=== PATIENT | female | born 1930 | race Caucasian/White ===

== ENCOUNTER 2016-07-31 14:58 | Inpatient (IN) | payer MEDICARE, OTHER ==
[~2016-07-31] VITALS: Ht 160 cm; Wt 65.6 kg
[2016-07-31 15:12] VITALS: BP 224/84; PULSE 77; RESP 23; O2SAT 97
--- NOTE | 2016-07-31 15:13 | ED.REPORT ---
HPI-General Illness Date of Service Jul 31, 2016 ED Provider: The patient is an 86 year old female with history of hyperlipidemia, diabetes mellitus type II, anxiety, depression, who was brought to the emergency department complaining of generalized weakness that has been worsening over the last 2-3 months. Over the last week she has been falling on several occasions. She has also been complaining of generalized myalgias and fatigue. Her neurologist believes her weakness is due to overdosing on her medication. She was given a new prescription for lorazepam 1 week ago which correlates with the timing of the falls. She denies chest pain, abdominal pain or shortness of breath. Nursing Notes Stated Complaint: GENERAL Chief Complaint: General Complaint Nursing Notes Reviewed: Yes Allergies: Coded Allergies: Penicillins (Unverified Allergy, Severe, ANAPHYLACTIC SHOCK, 05/17/09) TAPE (Unverified Allergy, Severe, LÓPEZ, 08/13/05) latex (Unverified Allergy, Severe, HIVES, 05/17/09) General Time Seen by MD: 15:13 Chief Complaint Weakness Hx Obtained From: Patient, Daughter, EMS Arrived By: Ambulance Sudden in Onset?: No Onset Occurred: More than a week ago... Symptom Duration: Since onset Quality: Painful Severity: Current: Moderate Severity: Maximum: Moderate Recent Healthcare: No recent hospitalization, Recent doctor visit Similar Sx Previous: Yes Past Medical History Past Medical History Parkinson's Disease Anemia Anxiety Hypertension Hyperlipidemia Osteoarthritis Depression Restless leg syndrome Type II diabetes mellitus Past Surgical History Hip replacement x2 Knee replacement x2 Hysterectomy Smoking History Former Smoker Social History Drug Use: Denies drug use Other Social History: Good social support, Lives alone Ambulatory Status Independent Review of Systems Full Review of Systems Constitutional: Reports: Fatigue, Weakness - generalized Respiratory: Denies: Shortness of breath Cardiovascular: Denies: Chest pain GI: Denies: Abdominal pain Musculoskeletal: Reports: Myalgia Neurologic: Reports: Weakness Complete sys rev & neg: except as marked. Physical Exam Vital Signs Vital Signs Date Time Temp Pulse Resp B/P Pulse Ox O2 Delivery O2 Flow Rate FiO2 07/31/16 15:12 36.8 77 23 224/84 97 Room Air Initial VS: Reviewed, Vital signs abnormal Neck: Supple, Non-tender, Full range of motion Abdomen / GI: Soft, Non-tender, No guarding, No rebound, No distention Lymphatic: No lymphadenopathy Extremities: Vascular intact, Neuro intact Skin: Warm, Dry, No cyanosis Psychiatric: Mood/affect normal, Behavior normal, Normal thought content General/Constitutional: Awake, Alert Head / Eyes: Atraumatic, Normocephalic, PERRL, EOMI ENT: Airway patent Mouth: Positive: Mucous membranes dry Respiratory / Chest: Atraumatic, Breath sounds NL, Breath sounds = bilat, No respiratory distress, No rales, No rhonchi, No wheezing Cardiovascular: Heart rate NL, Regular rhythm, Cap refill not delayed, Peripheral circulation NL Heart Sounds / Murmur: Positive: Systolic murmur present.. (at the right upper sternal border) Lower Ext Edema: Positive: Bilateral 1+ Upper Extremities Upper Extremity / MS: Neurologic intact, Vascular intact Scattered bruising Lower Extremity / Pelvis / MS: Neurologic intact, Vascular intact Bilateral lower extremity edema. Bruising to both lower extremities. Neurologic: Oriented X3, Speech NL, No sensory deficits Mild intention tremor. Moving all four extremities. Interpretation & Diagnostics Lab Results Interpretation Result Diagram: 07/31/16 1558 07/31/16 1558 Test 07/31/16 15:10 07/31/16 15:58 Urine Color Yellow (YELLOW) Urine Appearance Clear (CLEAR,HAZY) Urine pH 6.5 (5.0-8.0) Urine Specific [place] 1.015 (1.003-1.035) Urine Protein Negativemg/dL (NEG,TRACE) Urine Glucose (UA) Negativemg/dL (NEGATIVE) Urine Ketones Tracemg/dL (NEGATIVE) Urine Occult Blood Negative (NEGATIVE) Urine Nitrite Negative (NEGATIVE) Urine Bilirubin Negative (NEGATIVE) Urine Urobilinogen Normalmg/dL (NORMAL) Urine Leukocyte Esterase Negative (NEGATIVE) Urine RBC 0-2/hpf (0-2) Urine WBC 0-5/hpf (0-5) Urine Epithelial Cells None/hpf (NONE-MOD) Urine Crystals None seen (NONE SEEN) Urine Bacteria Few/hpf (NONE-FEW) Urine Hyaline Casts None/lpf (NONE) Urine Granular Casts None seen (NONE SEEN) Urine Waxy Casts None seen (NONE SEEN) Urine Red Blood Cell Casts None seen (NONE SEEN) Urine White Blood Cell Casts None seen (NONE SEEN) Urine Mucus None seen (None Seen) Urine Trichomonas None seen (NONE SEEN) Urine Yeast None (NONE SEEN) Urinalysis Comment None Urine Culture Reflexed Not indicated Hold Urine Received (Received) White Blood Count 7.0th/mm3 (3.8-10.1) Red Blood Count 4.48mil/mm3 (3.90-5.20) Hemoglobin 13.4g/dL (12.0-15.6) Hematocrit 40.1% (35.0-46.0) Mean Corpuscular Volume 89.5fL (81-100) Mean Corpuscular Hemoglobin 29.9pg (27.0-35.0) Mean Corpuscular Hemoglobin Concent 33.4% (32.0-37.0) Red Cell Distribution Width 12.9% (12.3-15.4) Platelet Count 287bil/L (150-400) Neutrophils (%) (Auto) 71.0% (40-74) Lymphocytes (%) (Auto) 16.2% (14-46) Monocytes (%) (Auto) 11.0% (4-12) Eosinophils (%) (Auto) 1.1% (0-5) Basophils (%) (Auto) 0.4% (0-3) Sodium Level 130mEq/L (134-144) Potassium Level 4.7mEq/L (3.5-5.2) Chloride Level 92mEq/L (97-108) Carbon Dioxide Level 22mmol/L (18-29) Blood Urea Nitrogen 17mg/dL (8-27) Creatinine 0.93mg/dL (0.57-1.00) Estimat Glomerular Filtration Rate 82mL/min (>59) Glucose Level 107mg/dL (60-99) Lactic Acid Level 1.0mmol/L (0.4-2.0) Calcium Level 9.2mg/dL (8.5-10.1) Magnesium Level 1.9mg/dL (1.6-2.6) Total Bilirubin 0.6mg/dL (0.0-1.2) Aspartate Amino Transf (AST/SGOT) 29U/L (0-50) Alanine Aminotransferase (ALT/SGPT) 9U/L (0-32) Alkaline Phosphatase 92U/L (25-165) Troponin T < 0.010ug/L (0.0-0.011) Pro-B-Type Natriuretic Peptide 801.9pg/mL (0-738) Total Protein 6.5g/dL (6.4-8.4) Albumin 4.0g/dL (3.4-5.0) ECG Interpretation ECG Interpretation: Sinus rhythm with anterior and inferior Q waves Time: 15:50 Interpreted by: ED physician X-Ray Chest Interpretation Chest Xray Interpretation: IMPRESSION: No trauma found, source of weakness and falls is not seen. Dictated by: Chinmay Kemp M.D. on 07/31/2016 at 16:15 Interpretation / Wet Read by: Interpret - Radiologist CT Head Interpretation IMPRESSION: No acute intracranial abnormality is seen. Moderate atrophic changes. Scattered mild because of thickening is present in the sinuses. Dictated by: Jose A Sierra M.D. on 07/31/2016 at 17:30 Study: Head CT no contrast Interpretation / Wet Read by: Interpret - ED physician Re-Eval/Medical Decision Med Decision/Clinical Course Overall findings may be related to combination of carbidopa levodopa and Requip. However her overall presentation and exam findings would preclude her from going home. We will plan to admit her and have neurology see her tomorrow. Source of Hx: Old records, EMS, Family Time of Eval: 15:49 Re-Evaluation/Progress Note: Rechecked the patient. She states, "I am feeling lousy." Time of Eval: 17:53 Re-Evaluation/Progress Note: Rechecked the patient. Discussed results, diagnosis, and plan for admission. All questions were addressed. Consultation #1: Referral / Consult Name: Yamila Castillo MD Consulted With: Hospitalist Requested Call at: 17:53 Call Returned at: 18:07 Pipe Liner: Will see patient, Agrees with eval, Agrees with plan, Accepts admit Consultation #2: Referral / Consult Name: Angel George MD Consulted With: Neurology Call Returned at: 18:00 Pipe Liner: Will see patient, Agrees with eval, Agrees with plan Note: Agrees to consult. Counseled Regarding: Diagnosis, Lab results, Need for admission Discharge & Departure Primary Impression: Altered level of consciousness Additional Impression: Drug overdose Encounter type: initial encounter Injury intent: undetermined intent Qualified Code: T50.904A - Poisoning by unspecified drugs, medicaments and biological substances, undetermined, initial encounter Disposition: ADMITTED TO HOSPITAL Discharge Condition All VS Reviewed: Yes Condition: Stable Scribe Attestation Portions of this note were transcribed by Jojo Fox. I, Dr. Caceres personally performed the history, physical exam and medical decision-making; I reviewed and confirmed the accuracy of the information in the transcribed note. Signed by: Lanie Garcia, 07/31/2016 and 1810. Melquiades Caceres DO Jul 31, 2016 15:13 Jojo Fox Jul 31, 2016 15:23
[2016-07-31] MEDS ORDERED: 0.9% Sodium Chloride 1,000 ML IV ONE (15:42)
[2016-07-31] MEDS ORDERED: Labetalol 5 mg/mL 4 mL Inj IVPUSH ONE ×2 (16:00→17:25)
[2016-07-31 16:11] LABS: BASOPHILS % (AUTO) 0.4 % (0-3); EOSINOPHILS % (AUTO) 1.1 % (0-5); Mean Corpuscular Hemoglobin 29.9 pg (27.0-35.0); Mean Corpuscular Volume 89.5 fL (81-100); Platelet Count 287 bil/L (150-400)
--- NOTE | 2016-07-31 16:17 | DRSVH ---
PROCEDURE: X-RAY CHEST ONE VIEW, PORTABLE ([id number]) INDICATIONS: weakness, falls TECHNIQUE: One view of the chest was acquired. COMPARISON: None. FINDINGS: Surgical changes and devices: None. Lungs and pleura: No pleural effusions or pneumothorax. Lungs are clear. Mediastinum: Mediastinal contours appear normal. Heart size is normal. Bones and chest wall: No suspicious bony lesions. Overlying soft tissues appear unremarkable. IMPRESSION: No trauma found, source of weakness and falls is not seen. Dictated by: Chinmay Kemp M.D. on 07/31/2016 at 16:15 Approved by: Chinmay Kemp M.D. on 07/31/2016 at 16:15
[2016-07-31 17:15] VITALS: BP 197/70; PULSE 73; RESP 18; O2SAT 97
--- NOTE | 2016-07-31 17:33 | DRSVH ---
PROCEDURE: CT BRAIN WITHOUT CONTRAST ([id number]) INDICATIONS: falls TECHNIQUE: Noncontrast 4.5 mm thick angled axial sections acquired from the foramen magnum to the vertex, with c oronal reformats. COMPARISON: None. FINDINGS: Image quality: Excellent. CSF spaces: Basal cisterns are patent. No extra-axial fluid collections. The ventricles are symmet mariel in size and shape. Brain: No intracranial bleeds or masses. There is cerebral volume loss for age, with resultant vent ricular and sulcal prominence. There are periventricular and deep white matter chronic small vessel ischemic changes. There is intracranial internal carotid artery atherosclerosis. Skull and face: Calvarium and visualized facial bones appear intact, without suspicious lesions. Sinuses: Visualized sinuses and mastoids show scattered mild mucosal thickening IMPRESSION: No acute intracranial abnormality is seen. Moderate atrophic changes. Scattered mild because of thickening is present in the sinuses. Dictated by: Jose A Sierra M.D. on 07/31/2016 at 17:30 Approved by: Jose A Sierra M.D. on 07/31/2016 at 17:30
[2016-07-31 17:41] LABS: Magnesium 1.9 mg/dL (1.6-2.6)
[2016-07-31 17:44] LABS: TROPONIN T < 0.010 ug/L (0.0-0.011)
[2016-07-31 17:45] VITALS: BP 174/64; PULSE 72; RESP 18; O2SAT 96
[2016-07-31 17:48] LABS: APPEARANCE,URINE CLEAR (CLEAR,HAZY); COLOR,URINE YELLOW (YELLOW); OCCULT BLOOD,URINE NEGATIVE (NEGATIVE); PH,URINE 6.5 (5.0-8.0); UROBILINOGEN,URINE NORMAL (NORMAL)
[2016-07-31] MEDS ORDERED: LORazepam 0.5 mg Tablet PO ONE (18:00)
--- NOTE | 2016-07-31 20:47 | PCM.HPMED ---
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 for neurologic assessment of generalized weakness that has been worsening over the last 2 months. Per report, patient has also fallen on several occasions in the past week and has been complaining of general myalgia, fatigue, and general discomfort. Her neurologist believes her symptoms may be due to overdosage of her medications, and along with addition of Lorazepam to her regimen, this may be causing her recent falls. She is unable to localize her discomforts, but denies any recent fevers, chills, N/V/D, abdominal pain, SOB, or anginal symptoms. Her Sinemet dosage was double a week ago, which has helped with her tremors, but her weakness remains. Her fluid and PO intake has also been fairly decreased. In the ED, patient was found to be hypertensive at 224/84. Her CBC and CMP was reassuring except for Sodium of 130. Her UA was unremarkable. CXR and CT brain did not show any acute disease process. Rapid Flu screen was negative. EKG was sinus rhythm with rate in the 80s. She did receive a Liter of NS and 30mg of IV Labetalol for blood pressure control. Review of Systems: 12 Point ROS negative except as stated in HPI Allergies Coded Allergies: Penicillins (Unverified Allergy, Severe, ANAPHYLACTIC SHOCK, 05/17/09) TAPE (Unverified Allergy, Severe, LÓPEZ, 08/13/05) latex (Unverified Allergy, Severe, HIVES, 05/17/09) Home Medications Med list from [facility] records Sinemet CR 25/100 1 tab PO QHS Sinemet 25/100 1 tab PO TID during the day (This has been increased to 2 tablets PO TID recently) Celecoxib 200mg 1 tab Po BID Nexium 40mg 1 tab PO daily Fluoxetine 40mg 1 tab PO daily Fluticasone 2 sprays daily Requip 0.25mg 1 tab po prn RLS Lorazepam 0.5mg 1/2 tab PO Q6h prn anxiety/agitation Vit D3 Per patient's medication log Tylenol PM 1 tab prn insomnia CBD 1 drop TID Santana [facility] Sleep Aid 2 tablets QHS Tylenol 325mg 2 tablets PRN Lorazepam 0.5mg 2 tabs at bedtime and as needed Q6h Rohypnol 1 tab PO PMH Parkinson's Disease Anemia Anxiety Hypertension Hyperlipidemia Osteoarthritis Depression Restless leg syndrome Type II diabetes mellitus Past Surgical History Hip replacement x2 Knee replacement x2 Hysterectomy Social History Hx Alcohol Use: Yes Hx Substance Use: No Hx Tobacco Use: Yes Smoking Status: Former Smoker Living Arrangement: with Family Exam Vital Signs Vital Sign - Last Date Time Temp Pulse Resp B/P Pulse Ox O2 Delivery O2 Flow Rate FiO2 07/31/16 15:12 36.8 77 23 224/84 97 Room Air Exam Gen: Thin female who appears restless HEENT: Sclera non-icteric, head normocephalic atraumatic Neck: Soft, non-tender CV: RRR with systolic murmur, no JVD noted Resp: CTAB, normal respiratory effort, no w/r/c, no clubbing Abd: Soft, non-tender, nondistended, normoactive BS MSK: Tremors of upper extremities at rest, Neuro: Oriented x3, light sensation grossly intact Psych: Restless and uncomfortable Lab and Diagnostics Result Diagram: 07/31/16 1558 07/31/16 1558 X-Rays, CTs and MRIs PROCEDURE: CT BRAIN WITHOUT CONTRAST ([id number]) INDICATIONS: falls TECHNIQUE: Noncontrast 4.5 mm thick angled axial sections acquired from the foramen magnum to the vertex, with coronal reformats. COMPARISON: None. FINDINGS: Image quality: Excellent. CSF spaces: Basal cisterns are patent. No extra-axial fluid collections. The ventricles are symmetric in size and shape. Brain: No intracranial bleeds or masses. There is cerebral volume loss for age , with resultant ventricular and sulcal prominence. There are periventricular and deep white matter chronic small vessel ischemic changes. There is intracranial internal carotid artery atherosclerosis. Skull and face: Calvarium and visualized facial bones appear intact, without suspicious lesions. Sinuses: Visualized sinuses and mastoids show scattered mild mucosal thickening IMPRESSION: No acute intracranial abnormality is seen. Moderate atrophic changes. Scattered mild because of thickening is present in the sinuses. PROCEDURE: X-RAY CHEST ONE VIEW, PORTABLE ([id number]) INDICATIONS: weakness, falls TECHNIQUE: One view of the chest was acquired. COMPARISON: None. FINDINGS: Surgical changes and devices: None. Lungs and pleura: No pleural effusions or pneumothorax. Lungs are clear. Mediastinum: Mediastinal contours appear normal. Heart size is normal. Bones and chest wall: No suspicious bony lesions. Overlying soft tissues appear unremarkable. IMPRESSION: No trauma found, source of weakness and falls is not seen. Assessment & Plan 86 year old Female with h/o Parkinson Disease, DM2, HTN, anxiety, and depression who presented to the emergency department complaining of generalized weakness that has been worsening over the last 2 months with increasing falls over the last week. She recently increased her Sinemet dosage, which has improved her tremors, but her weakness was present prior to the change. Her falls in the last week corresponds with the addition of Lorazepam to her medication regimen. Generalized Weakness -Uncertain of source, but likely multifactorial and worsened due to recent medication changes. Besides her Parkinson medications, she is also on multiple sedative medications including Lorazepam, Requip, Rohypnol, Tylenol PM, CBD drops, and XD Nutrition sleep aids. -Plan is for neuro assessment in the AM, Dr. George has been notified. -DDx Progression of Parkinson,and infectious sources, but labs and imaging have been benign Parkinson Disease -Baseline tremors have been stable -Swallow evaluation recommended -Fall risk precautions -Will continue Sinemet IR 25/100, 1 tab PO TID. Will need to clarify current dosing with family members. Hypertension -Blood pressures have been repeatedly in the 200s systolic, there were no BP medications noted on patient's medication list -Improving pressures after IV Labetalol administration. Anxiety and Depression -Continue Fluoxetine Diabetes Mellitus type 2 -Non Insulin Dependent, diet controlled Pain Evaluation: Adequate Pain Control VTE Prophylaxis: Sub-Q Enoxaparin Resuscitation Status: DNR/DNI:Do Not Resuscitate/Intubate Attending Statement Pt seen and examined by myself and agree with above plan. Ramsey,Jacky Thakur DO Jul 31, 2016 19:57 Cami Lisa MD Aug 01, 2016 06:16
[2016-07-31] MEDS: 0.9% Sodium Chloride 1,000 ML IV SCH (21:14)
[2016-07-31 21:15] VITALS: BP 179/70; PULSE 70; RESP 17; O2SAT 96
[2016-08-01 01:20] VITALS: BP 190/72; PULSE 63; RESP 17; O2SAT 94
--- NOTE | 2016-08-01 03:06 | NUR ---
ADMIT: Pt. arrived to [facility] from the ED via stretcher. Transferred to bed with 3 unit staff assist. Pt. is able to answer some questions sometimes but does not want to talk, appears upset, keeping her eyes closed most of the time. Refuses to answer admit questions. Wants light out. Pt. incontinent of urine on arrival. Has a brief on. Jose G care done. Noticed some redness in her rectum, applied Calmoseptine cream with jose g care. Has multiple bruises on feet, legs and thighs. Generalized red skin rash, denies itching. Some bruises on right elbow, hands and feet. Some old healed surgical scars on face, knees, and both hips. Pt. has tremors hx Parkinson, and restless leg syndrome. Was up to the [facility] with 2 person assist. Voided. High risk for falls, she is confused and disoriented. Lanny alarm placed in bed for safety. Pt. became agitated and restless attempting to get OOB. Called for 1:1 sitter. None available at this time. CHEESE FACTORY WORKER and RN watching pt. from outside her room window for safety. Keeping pt. NPO for now until swallow eval. done today. Admit done per protocol. Gave report to Mary Ventura Rn.
--- NOTE | 2016-08-01 05:16 | NUR ---
Confusion Patient appears confused and disoriented. Does not understand why she cannot get out of bed and go back home. Patient does not respond appropriately to questions.
[2016-08-01 05:40] VITALS: BP 185/74; PULSE 60; RESP 17; O2SAT 96
[2016-08-01 07:38] LABS: BASOPHILS % (AUTO) 0.7 % (0-3); MONOCYTES % (AUTO) 12.8 % (4-12); Mean Corpuscular Hemoglobin 30.5 pg (27.0-35.0); NEUTROPHILS % (AUTO) 68.4 % (40-74); Platelet Count 286 bil/L (150-400)
[2016-08-01] MEDS ORDERED: CELE-67 PO (09:45)
[2016-08-01] MEDS ORDERED: CHOL100045 PO (09:46)
[2016-08-01] MEDS ORDERED: FLUO40CA PO (09:46)
[2016-08-01] MEDS ORDERED: LORA0.5T PO (09:47)
[2016-08-01] MEDS ORDERED: ACET325T51 PO (09:48)
[2016-08-01] MEDS ORDERED: CARB1TAB14 PO (09:53)
[2016-08-01] MEDS ORDERED: ROPI0.25 PO (09:53)
[2016-08-01] MEDS ORDERED: CARB1TAB36 PO (09:54)
--- NOTE | 2016-08-01 09:55 | NUR ---
Med Req Medication reconciliation done with daughter.
--- NOTE | 2016-08-01 09:57 | NUR ---
Evaluation completed. Please go to "Notes" then click on "Assessments and Notes" (bottom left corner of screen). Then select appropriate discipline tab on top of screen.
[2016-08-01] MEDS: 0.9% Sodium Chloride 1,000 ML IV SCH (11:27)
[2016-08-01 14:33] VITALS: BP 170/73; PULSE 75; RESP 17; O2SAT 96
--- NOTE | 2016-08-01 15:24 | PCM.PNMED ---
Subjective Date of Service Aug 01, 2016 Subjective complains of generalized malaise and weakness. denies any fever, chills, nausea , vomiting, diarrhea Exam Vital Signs Vital Sign - Last Date Time Temp Pulse Resp B/P Pulse Ox O2 Delivery O2 Flow Rate FiO2 08/01/16 14:33 37.0 75 17 170/73 96 Room Air Intake and Output 07/31/16 07/31/16 08/01/16 Cumulative From/Thru 15:00 23:00 07:00 07/31/16 15:12 - 08/01/16 06:12 Intake Total 1000 ml 334 ml 1334 ml Output Total 491 ml 491 ml Balance 1000 ml -157 ml 843 ml Intake Oral 0 ml 0 ml IV Total 1000 ml 334 ml 1334 ml Output Urine Total 491 ml 491 ml # Bowel Movements 0 0 General: Alert, Oriented X3, Cooperative, No Acute Distress Eyes: PERRLA, EOMI, Scleral Anicteric Mouth: Mucous Membr Moist/[place] Neck: Supple Chest & Lungs: Chest Wall Normal, Clear to auscultation & percussion Cardiovascular: Regular Rate/Rhythm Abdomen: Non-tender, Non-distended, Normoactive bowel tones, Soft Extremities: No cyanosis/clubbing/edma bilat Neurological: Grossly Neurologically Intact, Normal Speech IVs and Medications Medications Reviewed: Medications were reviewed in detail Lab and Diagnostics Result Diagram: 08/01/1673108/01/16 0732 X-Rays, CTs and MRIs PROCEDURE: CT BRAIN WITHOUT CONTRAST ([id number]) INDICATIONS: falls TECHNIQUE: Noncontrast 4.5 mm thick angled axial sections acquired from the foramen magnum to the vertex, with coronal reformats. COMPARISON: None. FINDINGS: Image quality: Excellent. CSF spaces: Basal cisterns are patent. No extra-axial fluid collections. The ventricles are symmetric in size and shape. Brain: No intracranial bleeds or masses. There is cerebral volume loss for age , with resultant ventricular and sulcal prominence. There are periventricular and deep white matter chronic small vessel ischemic changes. There is intracranial internal carotid artery atherosclerosis. Skull and face: Calvarium and visualized facial bones appear intact, without suspicious lesions. Sinuses: Visualized sinuses and mastoids show scattered mild mucosal thickening IMPRESSION: No acute intracranial abnormality is seen. Moderate atrophic changes. Scattered mild because of thickening is present in the sinuses. PROCEDURE: X-RAY CHEST ONE VIEW, PORTABLE ([id number]) INDICATIONS: weakness, falls TECHNIQUE: One view of the chest was acquired. COMPARISON: None. FINDINGS: Surgical changes and devices: None. Lungs and pleura: No pleural effusions or pneumothorax. Lungs are clear. Mediastinum: Mediastinal contours appear normal. Heart size is normal. Bones and chest wall: No suspicious bony lesions. Overlying soft tissues appear unremarkable. IMPRESSION: No trauma found, source of weakness and falls is not seen. Assessment & Plan 86 year old Female with h/o Parkinson Disease, DM2, HTN, anxiety, and depression who presented to the emergency department complaining of generalized weakness that has been worsening over the last 2 months with increasing falls over the last week. She recently increased her Sinemet dosage, which has improved her tremors, but her weakness was present prior to the change. Her falls in the last week corresponds with the addition of Lorazepam to her medication regimen. # Acute on chronic generalized weakness. poa. ongoing. - Uncertain of etiology, but likely multifactorial and worsened due to recent medication changes. - Besides her Parkinson medications, she is also on multiple sedative medications including Lorazepam, Requip, Rohypnol, Tylenol PM, CBD drops, and Santana signature sleep aids. - f/u with neurology consult and recommendation regarding medication dosing - DDx Progression of Parkinson,and infectious sources, but labs and imaging have been benign # History of Parkinson Disease - Baseline tremors have been stable - f/u with Swallow evaluation recommendations - Fall risk precautions - further Parkinson medications per neurology recs # History of Hypertension with presenting hypertensive urgency. poa. ongoing - Blood pressures have been repeatedly in the 200s systolic, there were no BP medications noted on patient's medication list - start low dose Lisinopril and titrate up as tolerated - cover with Hydralazine prn # Anxiety and Depression - Continue Fluoxetine # Diabetes Mellitus type 2 - Non Insulin Dependent, diet controlled Dispo: 1-2 days VTE Prophylaxis: Sub-Q Enoxaparin VTE Mechanical Devices: Intermittant Pneumatic CD Resuscitation Status: DNR/DNI:Do Not Resuscitate/Intubate Time spent 25 min Austen Rudolph Aug 01, 2016 15:23
[2016-08-01] MEDS ORDERED: LORazepam 0.5 mg Tablet PO PRN (15:25)
--- NOTE | 2016-08-01 16:47 | NUR ---
Social Work Initial Assessment Attempted: Patient confused and unable to participate in assessment. Patient is a 86 year old female admitted under observation status on 07/31/16 for ALT, LOC, pneumonia and drug overdose. Patient payer as Self pay. SW contacted and left message for [employer] for Medicaid assistance. Patient resides in [place]. Neurology to follow. SW to await therapy eval to determine discharge recommendations. SW to follow. PLAN: Initial assessment pending completion after discussion with family, to determine discharge needs. SW to follow. Ladonna HAINES
--- NOTE | 2016-08-01 17:05 | NUR ---
Activity/Neuro [place] [facility] [place]1. Pt has been able to ur[place] [facility] [place] is also incontinent in her brief. Pt is alert to her self and her visitors but is forgetful of where she is at and date/time. Pt has had Parkinson tremors in her hands and been complaining of being cold. Pt is afebrile and has been given warm blankets. Q2 turns for comfort and hourly rounding. Care continues.
[2016-08-01 21:20] VITALS: BP 150/69; PULSE 64; RESP 18; O2SAT 95
[2016-08-02] VITALS (7 sets, daily range): BP systolic 166–203; BP diastolic 72–94; PULSE 75–87; RESP 18–20; O2SAT 95–96
--- NOTE | 2016-08-02 03:41 | NUR ---
IV IV to right forearm noted to be infiltrated at beginning of shift. Orders for patient to be SL. New IV started by rn relief charge. Addendum: 08/02/16 at 0716 by ANTONIA PHILLIPS RN BP this AM: . Dr. Sloan houston @ [phone] and order for Hydralazine 10mg IVP [id number] PRN SBP >170 and/or DBP >90 received. Hydralazine 10mg IVP given.
[2016-08-02] MEDS: hydrALAZINE 20 mg/mL Inj IV PRN ×3 (06:14→19:13)
--- NOTE | 2016-08-02 09:03 | NUR ---
Social Work Initial Assessment: GAUDENCIO met with patient daughter Jennifer, at bedside to discuss discharge plan. Patient is an 86 year old female admitted under observation status on 07/31/16 for ALT LOC, pneumonia, and drug OD. Patient resides in [place] independently. Patient son also resides on the [place] and assists with needs during the evenings. Patient payer as Self pay, but patient daughter states that patient is insured and has insurance. Daughter to obtain and to present to GAUDENCIO. Patient has no C history but receives therapy services from a friend who is a therapist [place] the [place]. Patient has a walker, cane, and wheelchair at home for use. Patient has previous SNF history at [facility]. Patient daughter states that due to patient clinical course, and families inabilities to care for patient needs, plan is SNF placement. Patient daughter aware of need for financial payer and current observation status. SW to consult with UR team to determine status for possible rehab. SNF choice list offered per request and choice as [facility], [facility], and [facility]. GAUDENCIO to send referrals for SNF once admit status determined. If admit status remains, SW to follow for C. SW to follow. PLAN: Home alone. Possible SNF placement pending financial payer/admit status vs r/o [facility]. GAUDENCIO to follow. Ladonna HAINES Addendum: 08/02/16 at 0910 by LEILANI FINNEY Amended: Links added.
--- NOTE | 2016-08-02 09:03 | CONS ---
[address] [address] CONSULTATION REPORT PATIENT: SUNIL OSUNA : 1930 MR#: [id number] ADMIT: 07/31/2016 JOB ID: [id number] DATE OF SERVICE: 08/01/2016 NEUROLOGY CONSULTATION: REQUESTING PROVIDER: Melquiades Caceres DO CHIEF COMPLAINT: Confusion. HISTORY OF PRESENTING ILLNESS: The patient is a pleasant 86-year-old right-handed woman with a longstanding history of Parkinson disease with multiple medical problems, including a history of Parkinson disease. 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 It appears that over the past several weeks she has not been able to sleep for many hours and has noted worsening insomnia. There have been multiple changes to her medications. Multiple medications have been tried for her insomnia including Tylenol, CBD, Santana Signature sleep aids, lorazepam as well as Rohypnol with no significant improvement in her sleep. In addition to that, multiple changes have been made to her Sinemet. At one point, her Sinemet may have been as high as two tablets three times daily including an evening dose and it looks as well that her Requip was increased. She does have a prominent resting tremor including a chin tremor and her daughter who provided the history also notes and she suspects that the patient may have been taking more Sinemet on her own to counter the tremor. PHYSICAL EXAMINATION: Temperature of 36.5, pulse of 64, respiratory rate of 18, blood pressure 150/69, pulse oximetry 95% on room air. General: She is a well-developed, well-nourished woman in no acute distress. Head: Normocephalic, atraumatic. Neck: Supple. No carotid bruits were auscultated. Chest: Clear to auscultation. Heart: Regular rate and rhythm. Abdomen: Soft, nondistended, nontender. Extremities: No cyanosis, clubbing or edema. NEUROLOGIC EXAMINATION: She is awake, alert, and oriented x2. There is no aphasia. Cranial nerves: Pupils equal, round and react to light. Extraocular movements were smooth and conjugate with no evidence of nystagmus. Face appeared symmetrical. Facial sensation was intact to light touch and temperature. Auditory sensation was intact to finger rub. Palatal elevation was symmetrical. Tongue was midline. Sternocleidomastoid and trapezii were 5/5 bilaterally. Motor: There is a prominent 4-6 hertz resting tremor primarily in the left greater than right upper extremity. There is also a chin tremor noted, 4-6 hertz resting chin tremor. Tone is mildly increased in the left greater than right upper extremity. Sensory is intact. Deep tendon reflexes symmetrical. Plantar was flexor. Gait was deferred. Coordination: Finger to nose was intact without evidence of dysmetria. She did have a CT of her head which demonstrated no acute intracranial abnormality. Moderate atrophic changes. Scattered mild thickening present in the sinuses. IMPRESSION: Suspect toxic metabolic encephalopathy/encephalopathy secondary to side effects of medications as well as severe insomnia. RECOMMENDATIONS: Carbidopa/levodopa immediate release 1 tablet p.o. 4x daily is recommended. For sleep I do recommend a trial of trazodone starting at a low dose of 12.5-25 mg at bedtime. I also recommend continuing the ropinirole which is still on a low dose of 0.25 mg t.i.d. Her daughter has noted increased hallucinations and confusion which I suspect is related to the increased dose of dopaminergic agents including carbidopa/levodopa as well as ropinirole, which is a dopamine agonist. Although it is certainly possible that there may be worsening of stiffness and tremors in reducing this dose, it is also possible that the confusion will improve. In this case I do also suspect that the severe insomnia is contributing to the apparent worsening not only of her Parkinson disease, but also her confusion and encephalopathy. It also appears that a workup has been performed to exclude any toxic metabolic etiologies. Other than the hyponatremia which was noted and chloride of 92, sodium was 130, glucose 107, and urinalysis was remarkable for trace urine ketones, few bacteria. Otherwise unremarkable. We will continue to follow. Thank you, again, Dr. Caceres for kindly consulting me regarding the care of your patient. Please feel free to contact me with any questions or concerns.
--- NOTE | 2016-08-02 13:55 | NUR ---
NUTRITION ASSESSMENT: ASSESS: 86yo female admitted for pneumonia and altered LOC, likely medication-induced. Pt suffers from Parkinsons. Per notes, pt has experienced general weakness the last couple months w/ several falls in the last week. Pt is confused on time and place, but alert to self and others. PMHX: Parkinsons, DM II, HTN, anxiety, depression, restless leg syndrome, anemia, HLD, OA, hysterectomy, hip and knee replacements x2 LABS: Reviewed WNL. MEDS: Reviewed. Sinemet. GI: BMx1 (08/01) SKIN: Leighton 21 CURRENT WTS: 68.6 kg BMI: 26.8 kg/m2 IBW: 52.3 kg DIET: Pureed w/ NTL per ST eval PO 50% EST. NEEDS: Kcals: 2968-3898 kcal/day (25-30 kcal/kg BW) Pro: 70-80 g/day (1.0-1.2 g/kg BW) NUTRITION DIAGNOSIS: 1.) Chewing/swallowing difficulties related to generalized weakness and altered level of consciousness as evidenced by altered texture diet per ST evaluation. 2.) Inadequate oral intake related to generalized weakness and chronic disease as evidenced by PO 50%. NUTRITION INTERVENTION: 1.) Will continue to monitor per ST. 2.) Will add Mighty Shake No Sugar Added on L&D trays. MONITOR / EVAL: Diet advancement/tolerance, PO, diet, GI, POC. Will continue to monitor per moderate nutrition risk guidelines.
--- NOTE | 2016-08-02 14:15 | PCM.PNMED ---
Subjective Date of Service Aug 02, 2016 Subjective complains of generalized malaise and weakness. denies any fever, chills, nausea , vomiting, diarrhea Exam Vital Signs Vital Sign - Last Date Time Temp Pulse Resp B/P Pulse Ox O2 Delivery O2 Flow Rate FiO2 08/02/16 12:30 80 178/72 08/02/16 11:29 36.4 18 96 Room Air Intake and Output 08/01/16 08/01/16 08/02/16 Cumulative From/Thru 15:00 23:00 07:00 07/31/16 15:12 - 08/02/16 06:28 Intake Total 313 ml 629 ml 2276 ml Output Total 847 ml 500 ml 1838 ml Balance -534 ml 129 ml 438 ml Intake Oral 150 ml 350 ml 500 ml IV Total 163 ml 279 ml 1776 ml Output Urine Total 847 ml 500 ml 1838 ml # Voids 3 3 # Bowel Movements 1 0 1 Exam General: Alert, Oriented X3, Cooperative, No Acute Distress Eyes: PERRLA, EOMI, Scleral Anicteric Mouth: Mucous Membr Moist/[employer] Neck: Supple Chest & Lungs: Chest Wall Normal, Clear to auscultation bilat Cardiovascular: Regular Rate/Rhythm Abdomen: Non-tender, Non-distended, Normoactive bowel tones, Soft Extremities: No cyanosis/clubbing/edema bilat Neurological: Grossly Neurologically Intact, Normal Speech IVs and Medications Medications Reviewed: Medications were reviewed in detail Lab and Diagnostics Result Diagram: 08/01/16 0732 08/01/16 0732 X-Rays, CTs and MRIs PROCEDURE: CT BRAIN WITHOUT CONTRAST ([id number]) INDICATIONS: falls TECHNIQUE: Noncontrast 4.5 mm thick angled axial sections acquired from the foramen magnum to the vertex, with coronal reformats. COMPARISON: None. FINDINGS: Image quality: Excellent. CSF spaces: Basal cisterns are patent. No extra-axial fluid collections. The ventricles are symmetric in size and shape. Brain: No intracranial bleeds or masses. There is cerebral volume loss for age , with resultant ventricular and sulcal prominence. There are periventricular and deep white matter chronic small vessel ischemic changes. There is intracranial internal carotid artery atherosclerosis. Skull and face: Calvarium and visualized facial bones appear intact, without suspicious lesions. Sinuses: Visualized sinuses and mastoids show scattered mild mucosal thickening IMPRESSION: No acute intracranial abnormality is seen. Moderate atrophic changes. Scattered mild because of thickening is present in the sinuses. PROCEDURE: X-RAY CHEST ONE VIEW, PORTABLE ([id number]) INDICATIONS: weakness, falls TECHNIQUE: One view of the chest was acquired. COMPARISON: None. FINDINGS: Surgical changes and devices: None. Lungs and pleura: No pleural effusions or pneumothorax. Lungs are clear. Mediastinum: Mediastinal contours appear normal. Heart size is normal. Bones and chest wall: No suspicious bony lesions. Overlying soft tissues appear unremarkable. IMPRESSION: No trauma found, source of weakness and falls is not seen. Assessment & Plan 86 year old Female with h/o Parkinson Disease, DM2, HTN, anxiety, and depression who presented to the emergency department complaining of generalized weakness that has been worsening over the last 2 months with increasing falls over the last week. She recently increased her Sinemet dosage, which has improved her tremors, but her weakness was present prior to the change. Her falls in the last week corresponds with the addition of Lorazepam to her medication regimen. # Acute on chronic generalized weakness. poa. ongoing. - Uncertain of etiology, but likely multifactorial and worsened due to recent medication changes and overdose (pt reportedly had been taking extra doses of her Parkinsons meds recently) - Besides her Parkinson medications, she is also on multiple sedative medications including Lorazepam, Requip, Rohypnol, Tylenol PM, CBD drops, and Santana signature sleep aids. - c/w supportive care - appreciate neurology consult. will f/u w/ recs # History of Parkinson Disease - Baseline tremors have been stable - Fall risk precautions - further Parkinson medications per neurology recs # History of Hypertension with presenting hypertensive urgency. poa. ongoing - Blood pressures have been repeatedly in the 200s systolic, there were no BP medications noted on patient's medication list - start low dose Lisinopril and titrate up as tolerated - cover with Hydralazine prn # Anxiety and Depression - Continue Fluoxetine # Diabetes Mellitus type 2 - Non Insulin Dependent, diet controlled Dispo: likely tomorrow pending better BP control VTE Prophylaxis: Sub-Q Enoxaparin VTE Mechanical Devices: Intermittant Pneumatic CD Resuscitation Status: DNR/DNI:Do Not Resuscitate/Intubate Time spent 25 min Austen Rudolph Aug 02, 2016 14:15
[2016-08-02] MEDS: Alum-Mag Hydrox-Simeth 30 mL Suspension PO PRN (15:31)
[2016-08-02] MEDS: Ondansetron 2 mg/mL 2 mL Inj IVPUSH PRN ×2 (18:12→19:12)
--- NOTE | 2016-08-02 19:46 | NUR ---
Nausea/HTN/tremors Pt became nauseous asked for Tylenol at 1800, administered Tylenol crushed in applesauce, pt became nauseous and vomited all of the applesauce. administered 4mg IV Zofran, reassess and was un-effective administered another dose of 4mg IV Zofran will continue to monitor. Pt running high blood pressures this shift, IV Hydralazine given as prescribed, helped bring the BP down, gave PO Lisinopril as well. Pt has been complaining of bad tremors all shift administered Parkinson meds as prescribed, pt stated they weren't working very will, will continue to monitor and treat.
--- NOTE | 2016-08-02 22:26 | CONS ---
[address] [address] CONSULTATION REPORT PATIENT: SUNIL OSUNA : 1930 MR#: [id number] ADMIT: 07/31/2016 JOB ID: [id number] DATE OF SERVICE: 08/02/2016 SUBJECTIVE: The patient remains confused today. Reportedly in the afternoon tremor is noted to be much more severe. They have since resolved at the time of examination. Dose today of carbidopa/levodopa 25/100 1 tablet q.i.d. Also, ropinirole 0.25 mg p.o. t.i.d. Reportedly, the patient still only slept several hours last night, on a low-dose of trazodone. Will increase. PHYSICAL EXAMINATION: Vital signs: Temperature 36.5, pulse of 85, respiratory rate of 20, blood pressure 166/73, pulse oximetry 96% on room air. She is awake, alert, oriented x2. Confused as to the date. Tremors appeared significantly improved when examined today. IMPRESSION: Encephalopathy. In this case, my suspicion is that the encephalopathy may be related to medications and adjustment following reduction of dosed/possible withdrawal. RECOMMENDATIONS: 1. Increase trazodone this evening to 50 mg. 2. Increase noon dose of carbidopa/levodopa 25/100 to 2 tablets at noon. If the patient does not note any improvement on trazodone tonight, other options do include low-dose Seroquel or the new medication, Nuplazid, which is certainly an option, especially if there is evidence of hallucinations. However, if trazodone not does not prove effective, I would start with Seroquel and then escalate as tolerated. Given the nausea and changes in blood pressure, my suspicion is that she is withdrawing from a much higher dose of carbidopa/levodopa and overall dopamine. Will gradually titrate dopamine levels as tolerated and focus on optimizing control of insomnia. If necessary, she may benefit from low-dose Seroquel for hallucinations/confusion. At this point, she is only on Tylenol as needed for pain, Maalox p.r.n., carbidopa/levodopa 25/100, one tablet p.o. q.i.d., fluoxetine 40 mg at bedtime, hydralazine p.r.n., lisinopril 5 mg p.o. daily, Zofran as needed for nausea, Requip 0.25 mg p.o. t.i.d. and the one dose of trazodone she was given last night. We will continue to follow. Thank you, again, Dr. Rudolph for allowing me to participate in the care of your patient. Please feel free to contact me with any questions or concerns.
--- NOTE | 2016-08-03 02:16 | NUR ---
HTN/Pain/Tremors At 1910on 08/02/16 patients blood pressure was reported 203/74. Hydralazine IVP administered. Post medication, Bp reported at 166/73. Patient complained of neck pain. Administered 4mg of ondansetron before giving 975 of acetaminophen crushed in applesauce. Patient tolerated medication without any vomiting. Patient demonstrates Parkinson tremors, however, when physician came in to talk to patient and daughter, patients tremors appeared to subside until physician walked out.
[2016-08-03 02:18] VITALS: BP 138/73; PULSE 82; O2SAT 94
[2016-08-03 04:31] VITALS: BP 179/78; PULSE 77; RESP 18; O2SAT 94
[2016-08-03] MEDS: hydrALAZINE 20 mg/mL Inj IV PRN (05:48)
[2016-08-03 06:19] VITALS: BP 166/70
--- NOTE | 2016-08-03 08:51 | NUR ---
Called [facility] and spoke with Hannah, the cost for patient would be 291.00 per day and the minimum due at admit is 2 weeks. Faxed referral to [phone] Updated [employer]ATOR
[2016-08-03] MEDS: Alum-Mag Hydrox-Simeth 30 mL Suspension PO PRN ×2 (10:55→16:29)
[2016-08-03 14:41] VITALS: BP 101/59; PULSE 75; RESP 17; O2SAT 95
--- NOTE | 2016-08-03 14:41 | NUR ---
Skin care Pt c/o dry lips and dry nasal passages. Pt blowing her nose this a.m. and small amount of blood showing on tissues. Pt requested Vaseline for her nose. Applied mouth moisturizer and petroleum jelly to pt's lips. Applied small amount of petroleum jelly to pt's finger so she could apply it around her nose. Pt resting comfortably now. Care continues.
--- NOTE | 2016-08-03 15:03 | PCM.PNMED ---
Subjective Date of Service Aug 03, 2016 Subjective complains of generalized malaise and weakness. denies any fever, chills, vomiting, diarrhea Exam Vital Signs Vital Sign - Last Date Time Temp Pulse Resp B/P Pulse Ox O2 Delivery O2 Flow Rate FiO2 08/03/16 14:41 37.1 75 17 101/59 95 Room Air Intake and Output 08/02/16 08/02/16 08/03/16 Cumulative From/Thru 15:00 23:00 07:00 07/31/16 15:12 - 08/03/16 05:08 Intake Total 1460 ml 100 ml 3836 ml Output Total 130 ml 1968 ml Balance 1330 ml 100 ml 1868 ml Intake Oral 1460 ml 100 ml 2060 ml IV Total 1776 ml Output Urine Total 100 ml 1938 ml Emesis 30 ml 30 ml # Voids 5 3 11 # Bowel Movements 1 0 2 Exam General: Alert, No Acute Distress but sick appearing Eyes: PERRLA, EOMI, Scleral Anicteric Mouth: Mucous Membr Moist/[place] Neck: Supple Chest & Lungs: Chest Wall Normal, Clear to auscultation bilat Cardiovascular: Regular Rate/Rhythm Abdomen: Non-tender, Non-distended, Normoactive bowel tones, Soft Extremities: No cyanosis/clubbing/edema bilat Neurological: Grossly Neurologically Intact, Normal Speech IVs and Medications Medications Reviewed: Medications were reviewed in detail Lab and Diagnostics Result Diagram: 08/01/16 0732 08/01/16 0732 X-Rays, CTs and MRIs PROCEDURE: CT BRAIN WITHOUT CONTRAST ([id number]) INDICATIONS: falls TECHNIQUE: Noncontrast 4.5 mm thick angled axial sections acquired from the foramen magnum to the vertex, with coronal reformats. COMPARISON: None. FINDINGS: Image quality: Excellent. CSF spaces: Basal cisterns are patent. No extra-axial fluid collections. The ventricles are symmetric in size and shape. Brain: No intracranial bleeds or masses. There is cerebral volume loss for age , with resultant ventricular and sulcal prominence. There are periventricular and deep white matter chronic small vessel ischemic changes. There is intracranial internal carotid artery atherosclerosis. Skull and face: Calvarium and visualized facial bones appear intact, without suspicious lesions. Sinuses: Visualized sinuses and mastoids show scattered mild mucosal thickening IMPRESSION: No acute intracranial abnormality is seen. Moderate atrophic changes. Scattered mild because of thickening is present in the sinuses. PROCEDURE: X-RAY CHEST ONE VIEW, PORTABLE ([id number]) INDICATIONS: weakness, falls TECHNIQUE: One view of the chest was acquired. COMPARISON: None. FINDINGS: Surgical changes and devices: None. Lungs and pleura: No pleural effusions or pneumothorax. Lungs are clear. Mediastinum: Mediastinal contours appear normal. Heart size is normal. Bones and chest wall: No suspicious bony lesions. Overlying soft tissues appear unremarkable. IMPRESSION: No trauma found, source of weakness and falls is not seen. Assessment & Plan 86 year old Female with h/o Parkinson Disease, DM2, HTN, anxiety, and depression who presented to the emergency department complaining of generalized weakness that has been worsening over the last 2 months with increasing falls over the last week. She recently increased her Sinemet dosage, which has improved her tremors, but her weakness was present prior to the change. Her falls in the last week corresponds with the addition of Lorazepam to her medication regimen. # Acute on chronic generalized weakness. poa. ongoing. - Uncertain of etiology, but likely multifactorial and worsened due to recent medication changes and overdose (pt reportedly had been taking extra doses of her Parkinson meds recently) - Besides her Parkinson medications, she had also been on multiple sedative medications including Lorazepam, Requip, Rohypnol, Tylenol PM, CBD drops, and Santana signature sleep aids. - c/w supportive care - appreciate neurology consult. will f/u w/ recs - per neurology suspect "encephalopathy may be related to medications and adjustment following reduction of dosed/possible withdrawal" # History of Parkinson Disease - Fall risk precautions - further Parkinson medications per neurology recs # History of Hypertension with presenting hypertensive urgency. poa. ongoing - there were no BP medications noted on patient's medication list - start low dose Lisinopril on 08/02/16. titrate up as tolerated - cover with Hydralazine prn - Dr. George (neurology) suspect hypertension parietally due to carbidopa/ levodopa withdrawal. - f/u closely # Anxiety and Depression - Continue Fluoxetine # Diabetes Mellitus type 2 - Non Insulin Dependent, diet controlled # Insomnia. poa. ongoing - Trial of Trazodone for now Dispo: likely 1-2 days pending improved BP and neuro symptoms VTE Prophylaxis: Sub-Q Enoxaparin VTE Mechanical Devices: Intermittant Pneumatic CD Resuscitation Status: DNR/DNI:Do Not Resuscitate/Intubate Time spent 30 min Austen Rudolph Aug 03, 2016 15:03
--- NOTE | 2016-08-03 15:23 | NUR ---
Social Work Continued Discharge Planning: SW spoke to patient son Priscila, who provided SW with insurance information for [facility] (copy placed in unit folder). SW called admitting ans spoke to rep Yanelis who to verify insurance policy plan. Per rep SW to be contacted after verification of benefits. Patient remains in observation status at this time. UR team also following to determine possible inpatient status. Patient son aware of inpatient vs outpt status and aware of $291/day quoted pay rate via [facility], patient choice. SNF choice list provided and declined previously. Patient son and daughter Jennifer advised of pay rate and states having the available funds to cover expense. SW faxed updated clinical information and patient updated insurance information verifying [facility]. Rep Freddie aware of possible private pay options vs insurance coverage if patient meets inpatient criteria. SW to follow. PLAN: Possible SNF transfer to [facility] private pay vs insurance coverage if patient meets criteria. SW please note copy of insurance information in folder and admitting contacted to verify benefits. Ladonna HAINES
[2016-08-03 18:21] VITALS: BP 165/72; PULSE 77; RESP 20
[2016-08-03 20:15] VITALS: BP 116/63; PULSE 76; RESP 17; O2SAT 94
[2016-08-03] MEDS: CARBIDOPA LEVODOPA PO SCH (21:17)
--- NOTE | 2016-08-04 02:12 | PROG NOTE ---
[address] [address] PROGRESS NOTE PATIENT: SUNIL OSUNA : 1930 MR#: [id number] ADMIT: 07/31/2016 JOB ID: [id number] DATE: 08/03/2016 SUBJECTIVE: The patient improved today. Reportedly tremor significantly improved in the afternoon. Tremor was still noted to be more severe in the evening. The patient continues to have insomnia until approximately four of five in the morning. However appears more alert and awake today. She also was interested in getting up out of bed and trying to walk. PHYSICAL EXAMINATION: Vital signs: Temperature 36.6, pulse of 77, respiratory rate of 20, blood pressure 165/72 and pulse oximetry 95% on room air. General: She is a well-developed, well-nourished woman in no acute distress. Head: Normocephalic, atraumatic. Neck is supple. No carotid bruits were auscultated. Chest clear to auscultation. Heart: Regular rate and rhythm. Abdomen: Soft, nondistended, nontender. Extremities: No cyanosis, clubbing or edema. NEUROLOGIC EXAMINATION: Mental status: She is awake, alert, and oriented x2. There is no aphasia. Cranial nerves: Pupils equal, round, reactive to light. Extraocular movements were smooth and conjugate with no evidence of nystagmus. Face appeared symmetrical. Facial sensation was intact to light touch and temperature. Auditory sensation was intact to finger rub. Palatal elevation was symmetrical. Tongue was midline. Sternocleidomastoid and trapezii were 5/5 bilaterally. Motor: There is prominent 4-6 hertz resting tremor primarily in the left, greater than right upper extremity, is prominent definitely into the left, greater than the right upper extremity. There is a chin tremor noted 4-6 hertz primarily on the left side. Tone is increased in the left, greater than right upper extremity. Tone is mildly increased in the bilateral lower extremities. Sensation intact to light touch and temperature. Deep tendon reflexes were symmetrical. Coordination: Kzjnzo-ee-dwam was intact without evidence of dysmetria. Deep tendon reflexes symmetrical. Plantars flexor bilaterally. Gait was deferred. IMPRESSION: 1. Improving encephalopathy. 2. Parkinson's disease. 3. Insomnia. RECOMMENDATIONS: Stop trazodone and tonight start low dose of Seroquel. We will start 12.5 mg p.o. q.h.s. Reportedly, there have been no hallucinations. We will also switch the carbidopa levodopa evening dose to a controlled release formulation. We will also increase the morning dose given at 7 a.m. in the morning to two tablets. She is also receiving two tablets at noon time, and we will continue the 5 p.m. dose at one tablet. I will continue at this point, the ropinirole 0.25 mg p.o. t.i.d. It appears that insomnia still is definitely contributing to her symptoms. If she does not respond to Seroquel 12.5 mg tonight, we will consider increasing to 25 mg tomorrow night. It appears that she has already tried multiple sleep aids, including ropinirole, Tylenol PM, CBD drops, [employer] sleep aids. Other options certainly do include amitriptyline and nortriptyline. We will continue to follow. Thank you, again, Dr. Rudolph, for allowing me to kindly participate in the care of your patient. Please feel free to contact me with any questions or concerns.
--- NOTE | 2016-08-04 03:41 | NUR ---
Confusion/ Insomnia After Seroquel PO was given, pt. slept for about 4 hours. When pt. awoke, despite multiple times of the sitter and this RN talking with the pt. about the need for bedrest, and to stay in bed. Pt. kept trying to get out of bed. paged. Pt. ordered a one time dose of 12.5 mg of Seroquel which was given. Pt. is starting to get sleepy. Will continue to monitor.
[2016-08-04 06:05] LABS: Mean Corpuscular Hemoglobin 29.9 pg (27.0-35.0); Mean Corpuscular Volume 90.7 fL (81-100)
[2016-08-04 06:21] VITALS: BP 113/63; PULSE 71; RESP 17; O2SAT 93
[2016-08-04 08:07] VITALS: BP 163/73; PULSE 74; RESP 16; O2SAT 94
--- NOTE | 2016-08-04 10:25 | PCM.PNMED ---
Subjective Date of Service Aug 04, 2016 Subjective seroquel increasd to 25 for sleep aide, but given in 2 doses so drowsy this am, better tremors per daughter w/ new change in sinemet, no cough, no other complaints Exam Vital Signs Vital Sign - Last Date Time Temp Pulse Resp B/P Pulse Ox O2 Delivery O2 Flow Rate FiO2 08/04/16 08:07 74 16 163/73 94 Room Air 08/04/16 06:21 36.5 Intake and Output 08/03/16 08/03/16 08/04/16 Cumulative From/Thru 15:00 23:00 07:00 07/31/16 15:12 - 08/04/16 04:54 Intake Total 500 ml 4336 ml Output Total 1968 ml Balance 500 ml 2368 ml Intake Oral 500 ml 2560 ml IV Total 1776 ml Output Urine Total 1938 ml Emesis 30 ml # Voids 1 12 # Bowel Movements 1 3 Lab and Diagnostics Result Diagram: 08/04/16 0544 08/04/16 0544 X-Rays, CTs and MRIs PROCEDURE: CT BRAIN WITHOUT CONTRAST ([id number]) INDICATIONS: falls TECHNIQUE: Noncontrast 4.5 mm thick angled axial sections acquired from the foramen magnum to the vertex, with coronal reformats. COMPARISON: None. FINDINGS: Image quality: Excellent. CSF spaces: Basal cisterns are patent. No extra-axial fluid collections. The ventricles are symmetric in size and shape. Brain: No intracranial bleeds or masses. There is cerebral volume loss for age , with resultant ventricular and sulcal prominence. There are periventricular and deep white matter chronic small vessel ischemic changes. There is intracranial internal carotid artery atherosclerosis. Skull and face: Calvarium and visualized facial bones appear intact, without suspicious lesions. Sinuses: Visualized sinuses and mastoids show scattered mild mucosal thickening IMPRESSION: No acute intracranial abnormality is seen. Moderate atrophic changes. Scattered mild because of thickening is present in the sinuses. PROCEDURE: X-RAY CHEST ONE VIEW, PORTABLE ([id number]) INDICATIONS: weakness, falls TECHNIQUE: One view of the chest was acquired. COMPARISON: None. FINDINGS: Surgical changes and devices: None. Lungs and pleura: No pleural effusions or pneumothorax. Lungs are clear. Mediastinum: Mediastinal contours appear normal. Heart size is normal. Bones and chest wall: No suspicious bony lesions. Overlying soft tissues appear unremarkable. IMPRESSION: No trauma found, source of weakness and falls is not seen. Assessment & Plan 86 year old Female with h/o Parkinson Disease, DM2, HTN, anxiety, and depression , presented w/ generalized weakness worseningx2 months with increasing fallsx1 week-contributory new lorazepam, wheelchair bound x 2weeks. She recently increased her Sinemet dosage, w/ improved tremors. DR. Perdomo still optimizing medications. # Acute on chronic generalized weakness. poa. ongoing - Uncertain of etiology, but likely multifactorial and worsened due to recent medication changes and overdose (pt reportedly had been taking extra doses of her Parkinson meds recently) - Besides her Parkinson medications, she had also been on multiple sedative medications including Lorazepam, Requip, Rohypnol, Tylenol PM, CBD drops, and [employer] sleep aids. - - per neurology suspect "encephalopathy may be related to medications and adjustment following reduction of dosed/possible withdrawal" -- PT order # History of Parkinson Disease, improved tremors w/ new regimen sinemet - Fall risk precautions -- carbidopa levodopa evening switched to controlled release/increased the morning dose given at 7 a.m. in the morning to two tablets, continue two tablets at noon, continue 5 p.m. one tablet. continue ropinirole 0.[address] Dr perdomo # History of Hypertension with presenting hypertensive urgency. poa. ongoing but w/ change in sinemet hold increasing new lisinopril for now - there were no BP medications noted on patient's medication list - started low dose Lisinopril on 08/02/16. titrate up as tolerated - cover with Hydralazine prn - Dr. Perdomo (neurology) suspect hypertension partially due to carbidopa/ levodopa withdrawal. - f/u closely # Anxiety and Depression - Continue Fluoxetine # Diabetes Mellitus type 2 - Non Insulin Dependent, diet controlled # Insomnia. poa. ongoing -- Stopped trazodone started Seroquel for sleep since insomnia contributory to admission (consider amitriptyline and nortriptyline if seroquel not helpful), per Dr. 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 Also recommend dietary consult to support adequate nutrition. pending SNF VTE Prophylaxis: Sub-Q Enoxaparin VTE Mechanical Devices: Intermittant Pneumatic CD Resuscitation Status: DNR/DNI:Do Not Resuscitate/Intubate Yamila Castillo MD Aug 04, 2016 10:25
[2016-08-04 15:56] VITALS: BP 117/60; PULSE 82; RESP 16; O2SAT 95
[2016-08-04] MEDS: Alum-Mag Hydrox-Simeth 30 mL Suspension PO PRN (16:36)
--- NOTE | 2016-08-04 16:56 | CONS ---
[address] [address] CONSULTATION REPORT PATIENT: SUNIL OSUNA : 1930 MR#: [id number] ADMIT: 07/31/2016 JOB ID: [id number] DATE OF SERVICE: 08/04/2016 NEUROLOGY PROGRESS NOTE: SUBJECTIVE: The patient continues to improve. Reportedly she was able to sleep for a longer period of time last night. She received one dose of Seroquel 12.5 mg at bedtime and slept for 4 hours and then received another dose and was able to sleep, however appeared more sedated this morning. Tremors appear more controlled throughout the day. PHYSICAL EXAMINATION: Temperature 36.5, pulse of 71, respiratory rate of 17, blood pressure 113/63, pulse oximetry 93% on room air. General: She is a well-developed, well-nourished woman in no acute distress. Head: Normocephalic, atraumatic. Neck is supple. No carotid bruits were auscultated. Chest: Clear to auscultation. Heart: Regular rate and rhythm. Abdomen: Soft, nondistended, nontender. Extremities: No cyanosis, clubbing, or edema. NEUROLOGIC EXAMINATION: Mental status: She is awake, alert, and oriented x2. There is no aphasia. Cranial nerves: Pupils equal, round, and reactive to light. Extraocular movements were smooth and conjugate, with no evidence of nystagmus. Face appeared symmetrical. Facial sensation was intact to light touch and temperature. Auditory sensation was intact to finger rub. Palatal elevation was symmetrical. Tongue was midline. Sternocleidomastoid and trapezii were 5/5 bilaterally. Motor: There is an intermittent 4-6 hertz resting tremor primarily in the left upper extremity. There is also a chin tremor, also located on the left side. Tone is increased in the left upper extremity, mildly increased in the right upper extremity, and mildly increased in both lower extremities. Sensation intact to light touch and temperature. Deep tendon reflexes were symmetrical. Coordination: [id number]-[id number] was intact, without evidence of dysmetria. Deep tendon reflexes were symmetrical. Plantars were flexor bilaterally. Gait was deferred. She has seen today by physical therapy and they report that she was able to get up with one-person assist today and make a few steps. Her son also reports that she was able to do that for him as well. IMPRESSION: 1. Improving encephalopathy. 2. Parkinson disease. 3. Insomnia. RECOMMENDATIONS: Seroquel 25 mg q.h.s. Continue present regimen of carbidopa/levodopa immediate release and carbidopa/levodopa controlled release at bedtime. Continue physical therapy/occupational therapy. At this point she is on such a low dose of ropinirole 0.25 mg p.o. t.i.d. that, if there is a concern that the ropinirole is causing confusion, I do not see a reason why it could not be stopped. However, I do believe that it does play a role not only in control of restless legs but also in her Parkinson disease. If she continues to be confused, we may want to end up stopping the ropinirole by tapering it off; however, at this point I do recommend continuing the ropinirole at 0.25 mg 3 times daily. The Seroquel not only will help her with sleep but will also help with confusion and hallucinations. At this point I do not believe that the ropinirole is directly contributing to confusion. If she does remain confused we could certainly consider tapering this agent off; however, it is a dopamine agonist and may not only help with treatment of her restless legs syndrome but also with her Parkinson disease. Will continue to follow. Thank you again, Dr. Rudolph, for your kind referral of this patient. Please feel free to contact me with any questions or concerns.
--- NOTE | 2016-08-04 17:16 | NUR ---
Social Work: Continued Discharge Planning D: Pt discussed in morning rounds. Neurology is still working on the pt's medications. Pt is not medically stable for discharge at this time. [employer] reviewed pt's previous sw notes which references pt possibly paying privately at [facility] if pt does not meet inpatient criteria. As pt's insurance requires authorization [employer] contacted [facility] to request they submit authorization to [facility] for consideration even though pt is still in observation status. [employer] spoke with Hannah at [facility] who states that [facility] is closed until Saturday and that they would not be able to submit auth request until that time. A: Pt who is currently [address] [place] [address] assist; pt reported to have worked with PT today- no note currently entered at this time. P: Anticipate pt to discharge to [facility] pending [facility] Authorization versus self pay. ZAKI Alfonso Addendum: 08/04/16 at 1750 by LOUISE FINNEY [employer] received phone call from pt's friend, Fara, . She is responsible for paying pt's bills and bookkeeping. She has spoken with family who all agree that pt needs to go to [facility]. 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 She understands that pt will need to pay 2 weeks upfront for skilled care if ready for discharge prior to insurance authorization received.
--- NOTE | 2016-08-04 17:23 | NUR ---
MENTATION/ACTIVITY Patient is alert and oriented to person and place this morning but continues to be confused at times. Redirection needed. Denies pain. Tolerating liquids PO and her diet. Denies nausea. No emesis noted. Denies SOB. Patient was able to turn and pivot to the [facility] with 2 PA. Patient has not attempted to get OOB by herself. [place] alarm is on. Family is at the bedside. Addendum: 08/04/16 at 1727 by AURELIO ARENAS RN UA Patient is incontinent. Unable to obtain specimen for UA. is aware. Do not straight cath patient per Dr. Castillo.
[2016-08-04] MEDS: CARBIDOPA LEVODOPA PO SCH (20:21)
[2016-08-04 20:50] VITALS: BP 121/67; PULSE 74; RESP 18; O2SAT 94
[2016-08-05] VITALS (7 sets, daily range): BP systolic 125–192; BP diastolic 70–100; PULSE 65–80; RESP 17–20; O2SAT 96
--- NOTE | 2016-08-05 04:26 | NUR ---
Restlessness/ Agitation Around 0300 patient started to become restless, and agitated, pulling her covers and pillows off of the bed. Despite multiple repositioning attempts patient was still unable to get comfortable. Po tylenol given for 5/10 pain, but patient states no relief. Pt appears to be confused at times, and redirection is needed. This RN, gave patient bed bath, as well as spent time in room for over 30 minutes to help calm patient. Patient remains restless. Care continues. Addendum: 08/05/16 at 0546 by ELYSSA SEWELL RN After further reassessment, patient is able to state that her restless legs syndrome is the root of the discomfort. paged, and states no additional medications can be given at this time due to current medication regimen, and confused mental status. Allowed patient to sit on edge of bed to dangle. Heating pad applied to legs to aid in comfort. Care continues Addendum: 08/05/16 at 0640 by ELYSSA SEWELL RN Bladder scan showed 157 cc
--- NOTE | 2016-08-05 14:53 | PCM.PNMED ---
Subjective Date of Service Aug 05, 2016 Subjective She is nonverbal during my visit today, lying stiff in bed, covered with heavy layers of blankets. No tremor seen. Exam Vital Signs Vital Sign - Last Date Time Temp Pulse Resp B/P Pulse Ox O2 Delivery O2 Flow Rate FiO2 08/05/16 07:26 70 18 175/74 96 Room Air 08/05/16 05:08 36.5 Intake and Output 08/04/16 08/04/16 08/05/16 Cumulative From/Thru 15:00 23:00 07:00 07/31/16 15:12 - 08/05/16 06:24 Intake Total 400 ml 270 ml 5006 ml Output Total 1968 ml Balance 400 ml 270 ml 3038 ml Intake Oral 400 ml 270 ml 3230 ml IV Total 1776 ml Output Urine Total 1938 ml Emesis 30 ml # Voids 3 1 16 # Bowel Movements 0 3 Exam Non verbal No tremor Appears generally stiff/bradykinetic Heart: RRR with 3/6 Systolic murmur Lungs: CTAB No ankle edema Lab and Diagnostics Result Diagram: 08/04/16 0544 08/05/16 0515 X-Rays, CTs and MRIs PROCEDURE: CT BRAIN WITHOUT CONTRAST ([id number]) INDICATIONS: falls TECHNIQUE: Noncontrast 4.5 mm thick angled axial sections acquired from the foramen magnum to the vertex, with coronal reformats. COMPARISON: None. FINDINGS: Image quality: Excellent. CSF spaces: Basal cisterns are patent. No extra-axial fluid collections. The ventricles are symmetric in size and shape. Brain: No intracranial bleeds or masses. There is cerebral volume loss for age , with resultant ventricular and sulcal prominence. There are periventricular and deep white matter chronic small vessel ischemic changes. There is intracranial internal carotid artery atherosclerosis. Skull and face: Calvarium and visualized facial bones appear intact, without suspicious lesions. Sinuses: Visualized sinuses and mastoids show scattered mild mucosal thickening IMPRESSION: No acute intracranial abnormality is seen. Moderate atrophic changes. Scattered mild because of thickening is present in the sinuses. PROCEDURE: X-RAY CHEST ONE VIEW, PORTABLE ([id number]) INDICATIONS: weakness, falls TECHNIQUE: One view of the chest was acquired. COMPARISON: None. FINDINGS: Surgical changes and devices: None. Lungs and pleura: No pleural effusions or pneumothorax. Lungs are clear. Mediastinum: Mediastinal contours appear normal. Heart size is normal. Bones and chest wall: No suspicious bony lesions. Overlying soft tissues appear unremarkable. IMPRESSION: No trauma found, source of weakness and falls is not seen. Assessment & Plan 86 year old Female with h/o Parkinson Disease, DM2, HTN, anxiety, and depression , presented w/ generalized weakness worseningx2 months with increasing fallsx1 week-contributory new lorazepam, wheelchair bound x 2weeks. She recently increased her Sinemet dosage, w/ improved tremors. DR. George still optimizing medications. # Acute on chronic generalized weakness. poa. ongoing - Uncertain of etiology, but likely multifactorial and worsened due to recent medication changes and overdose (pt reportedly had been taking extra doses of her Parkinson meds recently) - Besides her Parkinson medications, she had also been on multiple sedative medications including Lorazepam, Requip, Rohypnol, Tylenol PM, CBD drops, and [employer] sleep aids. - - per neurology suspect "encephalopathy may be related to medications and adjustment following reduction of dosed/possible withdrawal" -- PT order -- Per Dr. George the next step would be to stop the Ropinorole if confusion/ sedation persist. # History of Parkinson Disease, improved tremors w/ new regimen sinemet - Fall risk precautions -- carbidopa levodopa evening switched to controlled release/increased the morning dose given at 7 a.m. in the morning to two tablets, continue two tablets at noon, continue 5 p.m. one tablet. Continue ropinirole 0.25 [address] p.o. t.i.d. per Dr George # History of Hypertension with presenting hypertensive urgency. poa. ongoing but w/ change in sinemet hold increasing new lisinopril for now - there were no BP medications noted on patient's medication list - started low dose Lisinopril on 08/02/16. This dose appears to be sufficient. - cover with Hydralazine prn - Dr. George (neurology) suspect hypertension partially due to carbidopa/ levodopa withdrawal. - f/u closely # Anxiety and Depression - Continue Fluoxetine # Diabetes Mellitus type 2 - Non Insulin Dependent, diet controlled # Insomnia. poa. ongoing -- Stopped trazodone started Seroquel for sleep since insomnia contributory to admission (consider amitriptyline and nortriptyline if seroquel not helpful), per Dr. George Continue present regimen of carbidopa/levodopa immediate release and carbidopa/levodopa controlled release at bedtime. Continue physical therapy/occupational therapy. At this point she is on such a low dose of ropinirole 0.25 mg p.o. t.i.d. that, if there is a concern that the ropinirole is causing confusion, I do not see a reason why it could not be stopped. However, I do believe that it does play a role not only in control of restless legs but also in her Parkinson disease. If she continues to be confused, we may want to end up stopping the ropinirole by tapering it off; however, at this point I do recommend continuing the ropinirole at 0.25 mg 3 times daily. The Seroquel not only will help her with sleep but will also help with confusion and hallucinations. At this point I do not believe that the ropinirole is directly contributing to confusion. If she does remain confused we could certainly consider tapering this agent off; however, it is a dopamine agonist and may not only help with treatment of her restless legs syndrome but also with her Parkinson disease. Will continue to follow. 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 Also recommend dietary consult to support adequate nutrition. pending SNF VTE Prophylaxis: Sub-Q Enoxaparin VTE Mechanical Devices: Intermittant Pneumatic CD Resuscitation Status: DNR/DNI:Do Not Resuscitate/Intubate Bowen Powell MD Aug 05, 2016 07:37
--- NOTE | 2016-08-05 15:00 | NUR ---
Evaluation completed. Please go to "Notes" then click on "Assessments and Notes" (bottom left corner of screen). Then select appropriate discipline tab on top of screen.
--- NOTE | 2016-08-05 15:43 | NUR ---
MENTATION/ACTIVITY 0715 Patient is alert and oriented to self. Confused. Per report patient was awake since 0300. Upon rounding patient was noted to be attempting to get OOB on her own. Tremors noted. Patient stated that she that her restless legs is exacerbating at this time. Sinemet and Requip administered. Will continue to monitor. 0800 Patient is sleeping comfortably at this time. 1030 Patient is awake at this time. HUMAN FACTORS SCIENTIST is at the bedside assisting the patient to eat her breakfast. 1200 Patient was showered by the HUMAN FACTORS SCIENTIST. Assisted with 2 person assist to the chair. Patient is complaining of her tremors again at this time and has been stating that she is uncomfortable despite being repositioned multiple times in the bed and in the chair. Sinemet administered. PT is at the bedside and will work with the patient. 1400 She was able to get OOB and ambulated in the room with SBA and the FWW. Tolerated activity well. Medicated earlier with Tylenol PO for complaints of generalized discomfort. Daughter is at the bedside at this time. *[place] alarm is on. Patient has been using her call light appropriately. Rounding/monitoring continues. Addendum: 08/05/16 at 1845 by AURELIO ARENAS RN ROUNDING/ACTIVITY 1600 Patient has been restless, anxious. Assisted to the chair but she just sat there for approximately 15 min. and wanted to get back to bed stating that she is uncomfortable and complaining of her legs. Patient was assisted to ambulate in the hallway X 1 with SBA and her FWW. Assisted back to the bed. She has been standing on and off at the bedside and has been doing her leg exercises. Daughter is at the bedside. 1800 Patient is unable to get comfortable despite multiple repositioning in the bed/chair. Ambulated in the hallway. Patient sat the side of the bed while eating her dinner. She continues to complain of RLS. Meds have been readjusted by Dr. George. Patient opted to take all her meds at .
[2016-08-05 16:55] LABS: APPEARANCE,URINE CLEAR (CLEAR,HAZY); COLOR,URINE YELLOW (YELLOW); OCCULT BLOOD,URINE NEGATIVE (NEGATIVE); PH,URINE 6.5 (5.0-8.0); UROBILINOGEN,URINE NORMAL (NORMAL)
--- NOTE | 2016-08-05 17:05 | PROG NOTE ---
[address] [address] PROGRESS NOTE PATIENT: SUNIL OSUNA : 1930 MR#: [id number] ADMIT: 07/31/2016 JOB ID: [id number] DATE: 08/05/2016 NEUROLOGY PROGRESS NOTE SUBJECTIVE: The patient appears much improved today. She is awake, alert, oriented x3. She does have some dyskinesias, however, they do appear controlled. Her tremors are much improved. According to staff, she was able to stand up with a one person assist today. We discussed switching to Rytary as an outpatient for treatment of her dyskinesias. Medications often given for treatment of dyskinesias have as a potential side effect the risk of worsening hallucinations. These medications such as amantadine are often limited in effect due to the risk of side effects, principally worsening hallucinations and, in this case, I would recommend consideration of Rytary as an option for treatment of dyskinesias. PHYSICAL EXAMINATION: Temperature 36.7, pulse of 80, respiratory rate of 17, blood pressure 151/70, pulse oximetry 96% on room air. General: She is a well-developed, well-nourished woman in no acute distress. Head: Normocephalic, atraumatic. Neck is supple. No carotid bruits were auscultated. Chest clear to auscultation. Heart: Regular rate and rhythm. Abdomen: Soft, nondistended, nontender. Extremities: No cyanosis, clubbing, or edema. NEUROLOGIC EXAMINATION: Mental status: She is awake, alert, oriented x3. Speech is clear and fluent. There was no aphasia. Cranial nerves: Pupils equal, round, reactive to light. Extraocular movements were smooth and conjugate with no evidence of nystagmus. Face appeared symmetrical. Facial sensation was intact to light touch and temperature. Auditory sensation was intact to finger rub. Palatal elevation was symmetrical. Tongue was midline. Sternocleidomastoid and trapezii were 5/5 bilaterally. Motor: There was an intermittent 4-6 hertz resting tremor principally in the left upper extremity. There was also noted to be an intermittent chin tremor also on the left side of her chin. These appeared much improved today when compared to yesterday. Tone was noted to be much improved as well, although it is still slightly increased in the left upper extremity. Time of examination 4:19 p.m. Sensation intact light touch and temperature. Deep tendon reflexes were symmetrical. Coordination: [id number] was intact without evidence of dysmetria. Plantars are flexor bilaterally. Gait was deferred. IMPRESSION: 1. Improving encephalopathy. 2. Parkinson disease. 3. Insomnia. RECOMMENDATIONS: She reports that often she is awoken at midnight by the desire to move her legs. It is unclear if she is often awoken at night as well by dyskinesias. She does report that at least last night after switching to controlled release carbidopa/levodopa, she was not awoken by her tremors and stiffness as much as prior to switching to controlled release carbidopa/levodopa. We discussed switching ropinirole to 0.25 mg at noon and 0.50 mg 1-3 hours prior to bedtime. Just to clarify again, what I recommend doing is to increase the evening dose of ropinirole to 0.50 mg 1-3 hours before bedtime and to stop the morning dose of ropinirole, however, to continue the noon dose of ropinirole at 0.25 mg. This will not change the overall dosage of ropinirole, it will just change the time of administration and may assist in the treatment of her restless legs syndrome. Thank you, again, Dr. Powell, for allowing me to participate in the care of your patient. Please feel free to contact me with any questions or concerns. We will continue to follow. I discussed this in detail with the patient and her daughter. We also discussed side effects in detail.
[2016-08-05] MEDS: Alum-Mag Hydrox-Simeth 30 mL Suspension PO PRN (19:30)
[2016-08-05] MEDS: CARBIDOPA LEVODOPA PO SCH (20:48)
--- NOTE | 2016-08-05 23:41 | NUR ---
HTN Start of shift patients BP was 192/100. Patient states she is very anxious, and uncomfortable due to her Restless leg syndrome, and symptoms from her Parkinson disease. BP rechecked shortly after and was 186/70. Night hospitalist notified, and a one time dose of lisinopril PO 5mg was ordered. Patient had refused an IV start, so PO medication was asked for. Upon further reassessment, patients BP read 178/78. Patient remains very anxious, and restless. Patient has no complaints of SOB, or CP, and all other vitals are within limits. will continue to monitor, and continue Q 1 hour checks. Addendum: 08/06/16 at 0530 by ELYSSA SEWELL RN Pts BP remains high. At am BP check, pressure was 193/85. Patient continues to be restless, and has not rested this evening. Night hospitalist paged. Orders for 0830 Lisinopril dose to be given now. Care continues.
--- NOTE | 2016-08-06 04:37 | NUR ---
Restless Leg syndrome Patient continues to have pain and discomfort due to her restless leg syndrome. Patient uses call light approx every 15 minutes to be repositioned, sit on side of bed, or stand with FWW. Both PE TEACHER and nurse have massaged legs frequently throughout the night, and K pad has been provided. But nothing seems to be helping the discomfort. Tylenol PO was given, but it seems to have no effect. Care continues. Will share this with the day shift nurse.
[2016-08-06 05:10] VITALS: BP 193/85; PULSE 71; RESP 20; O2SAT 95
--- NOTE | 2016-08-06 10:38 | NUR ---
Called and spoke with Freddie at [facility] and they have accepted patient with to follow. They were unable to start authorization on Saturday and INS is closed today. Freddie is planning to start this first thing Saturday. He has confirmed patient is active in benefits and they are in network. Updated AUTOMOTIVE SERVICE TECHNICIAN
--- NOTE | 2016-08-06 10:40 | NUR ---
Social Work Continued Discharge Planning: Plan is SNF placement at [facility], which has accepted patient pending [employer] auth vs private pay of $290/day. Patient remains in observation status at this time. Patient daughter Jennifer, updated and aware. GAUDENCIO spoke to [facility] rep Freddie, who states that patient accepted and updated clinical information needed for insurance auth. GAUDENCIO faxed clinical information to [facility], [phone]. Rep states that due to holiday, insurance company closed today and auth to be initiated tomorrow. SW to follow. PLAN: Accepted to [facility], pending [employer] auth vs private pay. [employer] closed today due to holiday. GAUDENCIO to follow. Ladonna HAINES
--- NOTE | 2016-08-06 11:18 | NUR ---
NUTRITION FOLLOW UP: ASSESS: 86 YO female admitted for pneumonia and altered LOC, likely medication-induced. Pt with fair PO intake. PMHX: Parkinsons, DM II, HTN, anxiety, depression, restless leg syndrome, anemia, HLD, OA, hysterectomy, hip and knee replacements x2 LABS: Reviewed. BUN 37, Cr 1.17, Glu 105 MEDS: Reviewed. GI: BM x 1 (08/03) SKIN: Leighton 21 CURRENT WT: 68.6 kg, BMI: 26.8 kg/m2, IBW: 52.3 kg DIET: Pureed w/ NTL per ST eval PO intake 25-75% ESTIMATED NEEDS: Calories: 4957-3576 kcal/day (25-30 kcal/kg BW) Protein: 70-80 g/day (1.0-1.2 g/kg BW) NUTRITION DIAGNOSIS: 1.) Chewing/swallowing difficulties related to generalized weakness and altered level of consciousness as evidenced by altered texture diet per ST evaluation.---PERSISTS. 2.) Inadequate oral intake related to generalized weakness and chronic disease as evidenced by PO 50%.---IMPROVED. NUTRITION INTERVENTION: 1.) Diet advancement per speech therapy. 2.) Continue supplements as ordered. MONITOR/EVALUATE: Diet advance/tolerance, PO, diet, GI, POC. Follow per moderate nutrition risk guidelines.
[2016-08-06] MEDS: cloNIDine 0.1 mg Tablet PO SCH ×2 (11:48→21:26)
[2016-08-06 12:30] VITALS: BP 173/85; PULSE 78; RESP 18; O2SAT 96
[2016-08-06 15:04] VITALS: BP 143/84; PULSE 80; RESP 21; O2SAT 98
--- NOTE | 2016-08-06 16:20 | PCM.PNMED ---
Subjective Date of Service Aug 06, 2016 Subjective Overnight, SBP continually in the 190's-200's. Hydralazine on board however, unable to administer due to no IV access. Patient denies any symptoms of headaches, dizziness, or pulsatile tinnitus. Patient was most preoccupy with hand tremors that has not decrease in amplitude. Repeated BP was 204/80's. Catapres was given with good effects. Exam Vital Signs Vital Sign - Last Date Time Temp Pulse Resp B/P Pulse Ox O2 Delivery O2 Flow Rate FiO2 08/06/16 15:04 36.7 80 21 143/84 98 Room Air Intake and Output 08/05/16 08/05/16 08/06/16 Cumulative From/Thru 14:59 22:59 06:59 07/31/16 15:12 - 08/06/16 06:22 Intake Total 650 ml 349 ml 6005 ml Output Total 390 ml 350 ml 2708 ml Balance 260 ml -1 ml 3297 ml Intake Oral 650 ml 349 ml 4229 ml IV Total 1776 ml Output Urine Total 390 ml 350 ml 2678 ml Emesis 30 ml # Voids 16 # Bowel Movements 0 0 3 Exam General: No acute distress HEENT: UJN, Anicteric sclerae, moist conjunctivae, and no lid lag. Neck: supple, no jvd Cardio: rrr, +3 systolic murmur Pulm: b/l air sound, no crackles, wheezes, rhonchi. Abd: + bowel tone, nontender, no distended. Extremities: No clubbing, cyanosis, edema Skin: Normal temperature, turgor, and texture Neuro: CN II-XII grossly intact. resting tremors noted. b/l hands. unable to do complete Serial 7, animal fluency test=7 animals, Psyc: Normal mood and affect. Alert and oriented to person, place, and time. IVs and Medications Medications Reviewed: Medications were reviewed in detail Lab and Diagnostics Result Diagram: 08/04/16 0544 08/06/16 1235 X-Rays, CTs and MRIs PROCEDURE: CT BRAIN WITHOUT CONTRAST ([id number]) INDICATIONS: falls TECHNIQUE: Noncontrast 4.5 mm thick angled axial sections acquired from the foramen magnum to the vertex, with coronal reformats. COMPARISON: None. FINDINGS: Image quality: Excellent. CSF spaces: Basal cisterns are patent. No extra-axial fluid collections. The ventricles are symmetric in size and shape. Brain: No intracranial bleeds or masses. There is cerebral volume loss for age , with resultant ventricular and sulcal prominence. There are periventricular and deep white matter chronic small vessel ischemic changes. There is intracranial internal carotid artery atherosclerosis. Skull and face: Calvarium and visualized facial bones appear intact, without suspicious lesions. Sinuses: Visualized sinuses and mastoids show scattered mild mucosal thickening IMPRESSION: No acute intracranial abnormality is seen. Moderate atrophic changes. Scattered mild because of thickening is present in the sinuses. PROCEDURE: X-RAY CHEST ONE VIEW, PORTABLE ([id number]) INDICATIONS: weakness, falls TECHNIQUE: One view of the chest was acquired. COMPARISON: None. FINDINGS: Surgical changes and devices: None. Lungs and pleura: No pleural effusions or pneumothorax. Lungs are clear. Mediastinum: Mediastinal contours appear normal. Heart size is normal. Bones and chest wall: No suspicious bony lesions. Overlying soft tissues appear unremarkable. IMPRESSION: No trauma found, source of weakness and falls is not seen. Assessment & Plan 86 year old Female with h/o Parkinson Disease, DM2, HTN, anxiety, and depression , presented w/ generalized weakness worseningx2 months with increasing fallsx1 week-contributory new lorazepam, wheelchair bound x 2weeks. She recently increased her Sinemet dosage, w/ improved tremors. DR. George still optimizing medications. # Acute on chronic generalized weakness. poa. ongoing - Uncertain of etiology, but likely multifactorial and worsened due to recent medication changes and overdose (pt reportedly had been taking extra doses of her Parkinson meds recently) - Besides her Parkinson medications, she had also been on multiple sedative medications including Lorazepam, Requip, Rohypnol, Tylenol PM, CBD drops, and Vtrim sleep aids. - - per neurology suspect "encephalopathy may be related to medications and adjustment following reduction of dosed/possible withdrawal" -- PT order -- Per Dr. George the next step would be to stop the Ropinorole if confusion/ sedation persist. # History of Parkinson Disease, improved tremors w/ new regimen sinemet - Fall risk precautions -- carbidopa levodopa evening switched to controlled release/increased the morning dose given at 7 a.m. in the morning to two tablets, continue two tablets at noon, continue 5 p.m. one tablet. Decrease ropinirole 0.[address] George # History of Hypertension with presenting hypertensive urgency. poa. ongoing but w/ change in sinemet hold increasing new lisinopril for now - there were no BP medications noted on patient's medication list - started low dose Lisinopril on 08/02/16. This dose appears to be sufficient. - Added Catapres. Will increase lisinopril in the AM - Dr. George (neurology) suspect hypertension partially due to carbidopa/ levodopa withdrawal. - f/u closely # Anxiety and Depression - Continue Fluoxetine # Diabetes Mellitus type 2 - Non Insulin Dependent, diet controlled # Insomnia. poa. ongoing -- Stopped trazodone started Seroquel for sleep since insomnia contributory to admission (consider amitriptyline and nortriptyline if seroquel not helpful), per Dr. George Continue present regimen of carbidopa/levodopa immediate release and carbidopa/levodopa controlled release at bedtime. Continue physical therapy/occupational therapy. At this point she is on such a low dose of ropinirole 0.25 mg p.o. t.i.d. that, if there is a concern that the ropinirole is causing confusion, I do not see a reason why it could not be stopped. However, I do believe that it does play a role not only in control of restless legs but also in her Parkinson disease. If she continues to be confused, we may want to end up stopping the ropinirole by tapering it off; however, at this point I do recommend continuing the ropinirole at 0.25 mg 3 times daily. The Seroquel not only will help her with sleep but will also help with confusion and hallucinations. At this point I do not believe that the ropinirole is directly contributing to confusion. If she does remain confused we could certainly consider tapering this agent off; however, it is a dopamine agonist and may not only help with treatment of her restless legs syndrome but also with her Parkinson disease. Will continue to follow. Dispo: likely 1-2 days pending improved BP and neuro symptoms, TRADE SHOW SPECIALIST recs ongoing therapy - Recommend puree textures, nectar thick liquids, ice chips in moderations, and medications crushed. Also recommend dietary consult to support adequate nutrition. pending SNF VTE Prophylaxis: Sub-Q Enoxaparin VTE Mechanical Devices: Intermittant Pneumatic CD Resuscitation Status: DNR/DNI:Do Not Resuscitate/Intubate Time spent 35 minutes Attending Statement I have seen and evaluated patient at bedside, in addition to directly supervising care provided by resident physician. I agree with above documentation. Jewel Espinal DO Aug 06, 2016 16:20 Santiago Gongora DO Aug 06, 2016 17:04
--- NOTE | 2016-08-06 19:16 | NUR ---
Activity/BM Pt up 1 assist frequently to chair, BSC, and back to bed, very restless and impulsive, [place] alarm on at all times. Pt had two large BMs today, occasionally incontinent of urine in brief. Pt forgetful, easy to reorient. Pt complaining of shaking driving her crazy, meds given as ordered.
[2016-08-06 19:40] VITALS: BP 165/90; PULSE 73; RESP 17; O2SAT 97
--- NOTE | 2016-08-06 20:58 | CONS ---
[address] [address] CONSULTATION REPORT PATIENT: SUNIL OSUNA : 1930 MR#: [id number] ADMIT: 07/31/2016 JOB ID: [id number] DATE OF SERVICE: 08/06/2016 SUBJECTIVE: The patient reportedly did not receive ropinirole last night. Today, blood pressures have been elevated and she has been more confused. She was unable to sleep restfully last night as well. Blood pressures today have varied from 125/71 up to 193/85. Her son who is at the bedside noted that at approximately 4:30 there was worsening tremor of the left upper extremity. This is likely due to wearing off of her carbidopa/levodopa as she received a dose at 5 p.m. She presently notes that what keeps her up at night is her restless legs. In light of that yesterday, I had switched the orders such that the ropinirole dose would be increased to 0.5 mg at bedtime while the overall ropinirole dose would have been the same as I switched the 0.25 mg morning dose to an evening dose and maintained the 0.25 mg dose at noon. I discussed this in detail with the patient's son. PHYSICAL EXAMINATION: Temperature 36.7, pulse of 80, respiratory rate of 17, blood pressure 151/70, pulse oximetry 96% on room air. General: She is a well-developed, well-nourished woman in no acute distress. Head: Normocephalic, atraumatic. Neck is supple. No carotid bruits were auscultated. Chest clear to auscultation. Heart: Regular rate and rhythm. Abdomen: Soft, nondistended, nontender. Extremities: No cyanosis, clubbing, or edema. NEUROLOGIC EXAMINATION: Mental status: She is awake, alert, and oriented x3. Speech is clear and fluent. There was no aphasia. She did report that she had a dry mouth. Cranial nerves: Pupils equal, round, reactive to light. Extraocular movements were smooth and conjugate with no evidence of nystagmus. Face appears symmetrical. Facial sensation was intact to light touch and temperature. Auditory sensation was intact to finger rub. Palatal elevation was symmetrical. Tongue was midline. Sternocleidomastoid and trapezii are 5/5 bilaterally. Motor: There was an intermittent slight 4-6 hertz resting tremor principally in the left upper extremity. Also noted an intermittent chin tremor on the left side of her chin as well as a tongue tremor. These appeared improved today at 7:29 p.m. and she received a dose at 5 p.m. Tone appeared improved in the left upper extremity. The right upper extremity tone appeared to be a 1 whereas the left upper extremity tone was a 2 on the UPDRS scale, unified Parkinson disease research scale. Sensation was intact to light touch and temperature. Deep tendon reflexes were symmetrical. Coordination, [id number] was intact without evidence of dysmetria. Plantars are flexor bilaterally. Gait was deferred. IMPRESSION: 1. Improving encephalopathy. 2. Parkinson disease. 3. Insomnia. 4. Restless legs syndrome. RECOMMENDATIONS: Tonight I do recommend that she take ropinirole 0.5 mg 1-3 hours before bed. I recommend that we continue otherwise the same regimen as she does report occasional hallucinations and vivid dreams, however, these appear to have been improved as these appear to have improved after Seroquel was started. I explained to her son that I do suspect that the symptoms that she has experienced today are likely related to withdrawal as she missed ropinirole 0.50 mg. Her blood pressures have been elevated and she has appeared to be slightly more agitated here. She felt that her tremor kept her up at night or it was her restless legs and she endorsed that it was the restless legs. In light of this, I would continue the ropinirole dose tonight for treatment of the restless legs. If there is no improvement with this, we may consider the addition of rotigotine or a further increase of the ropinirole evening dose. It appears that the Seroquel has worked well otherwise for treatment of insomnia as well as control of hallucinations and vivid dreams. We did discuss trying the increased dose of ropinirole tonight and seeing if her restless legs syndrome will respond to this and improve and allow her to sleep more soundly. If, on the other hand, there is a limited response to this, I would consider either increasing the ropinirole or adding a rotigotine patch. Thank you, again, Dr. Espinal and Dr. Gongora, for allowing me to participate in the care of your patient. Please feel free to contact me with any questions or concerns. We will continue to follow. At this point, I do believe that the ropinirole is playing a vital role in control of her restless legs syndrome.
[2016-08-06] MEDS: CARBIDOPA LEVODOPA PO SCH (21:26)
--- NOTE | 2016-08-07 05:57 | NUR ---
Mobility / restlessness Pt rn interventional in room related to pt's impulsive, restless activity; frequent moves from bed to chair while awake, observed sleeping for several hours in night. Able to transfer with one assist, contact guard.
[2016-08-07 06:11] VITALS: BP 131/53; PULSE 63; RESP 17; O2SAT 97
[2016-08-07] MEDS: cloNIDine 0.1 mg Tablet PO SCH ×2 (09:02→20:31)
[2016-08-07 09:05] VITALS: BP 131/77; PULSE 81; RESP 16; O2SAT 95
--- NOTE | 2016-08-07 10:50 | NUR ---
Evaluation completed. Please go to "Notes" then click on "Assessments and Notes" (bottom left corner of screen). Then select appropriate discipline tab on top of screen.
--- NOTE | 2016-08-07 14:49 | NUR ---
Social Work Continued Discharge Planning: Plan is SNF placement at [facility], which has accepted patient pending [facility] auth vs private pay of $290/day. Patient remains in observation status at this time. GAUDENCIO spoke to [facility] rep Freddie, who states that patient accepted and insurance auth pending at this time. GAUDENCIO faxed newly updated clinical information to [facility], [phone]. GAUDENCIO to follow. PLAN: Accepted at [facility], pending auth from [facility]. Auth initiated and awaiting response. Gaudencio to follow. Ladonna HAINES Addendum: 08/07/16 at 1500 by LEILANI FINNEY Per Freddie, auth obtained and patient approved for rehab. Bed to be available tomorrow. GAUDENCIO contacted patient daughter and left voice mail message regarding update. GAUDENCIO to follow. PLAN: Accepted to [facility] and auth obtained by [facility]. Bed to be available tomorrow. Ladonna HAINES
--- NOTE | 2016-08-07 19:35 | NUR ---
ACTIVITY Patient is alert to person and time. She continues to be have intermittent confusion throughout the day. She continues to be restless on and off, specially during the evening. Denies pain. Diet was upgraded to a soft diet and thin liquids. Tolerated it well. Denies nausea. No emesis noted. Denies SOB. Ambulates with SBA and the FWW. Tolerating activity well. Sitter is at the bedside.
[2016-08-07] MEDS: Alum-Mag Hydrox-Simeth 30 mL Suspension PO PRN (19:56)
[2016-08-07 20:10] VITALS: BP 148/76; PULSE 70; RESP 20; O2SAT 96
--- NOTE | 2016-08-07 20:21 | PROG NOTE ---
[address] [address] PROGRESS NOTE PATIENT: SUINL OSUNA : 1930 MR#: [id number] ADMIT: 07/31/2016 JOB ID: [id number] DATE: NEUROLOGY PROGRESS NOTE SUBJECTIVE: I spoke with the nurse taking care of the patient last night. She reports that she was able to sleep for at least several hours. There was a sitter in the room. She fell sleep at approximately 10 p.m. and awoke several times during the night and was reassured and went back to back and then awoke at 5 o'clock in the morning. She reports that her restless legs syndrome has improved and that she noted that it was less severe and had improved. Her daughter does note that unlike yesterday around 4:30 p.m. they did not note worsening tremors of the left upper extremity. There is some evidence suspicious for possible sundowning with an infusion that occurs as the evening comes on. Otherwise, there have been no other new neurologic symptoms noted. PHYSICAL EXAMINATION: Vital signs: Temperature 36.0, pulse of 81, respiratory rate of 16, blood pressure 131/77, pulse oximetry 95% on room air. General: She is a well-developed, well-nourished woman in no acute distress. She appeared more alert and awake today. Head: Normocephalic, atraumatic. Neck was supple. No carotid bruits were auscultated. Chest: Clear to auscultation. Heart: Regular rate and rhythm. Abdomen: Soft, nondistended, nontender. Extremities: No cyanosis, clubbing, or edema. NEUROLOGIC EXAMINATION: Mental status: She is awake, alert, oriented x3 today. Speech is clear and fluent. There was no aphasia. She reports that she may be coming down with a cold and was prescribed Zyrtec. Cranial nerves: Pupils equal, round, reactive to light. Extraocular movements were smooth and conjugate with no evidence of nystagmus. Face appeared symmetrical. Facial sensation was intact to light touch and temperature. Auditory sensation was intact to finger rub. Palatal elevation was symmetrical. Tongue was midline. Sternocleidomastoid and trapezii were 5/5 bilaterally. Motor: There was an intermittent slight 4-6 hertz resting tremor principally in the left upper extremity. She was examined at 7:30 p.m. Tone appeared improved today in the left upper extremity. The right upper extremity tone appeared to be 1 whereas the left upper extremity tone was 2 on the UPDRS (Unified Parkinson's Disease Research Scale). Sensation was intact to light touch and temperature. Deep tendon reflexes were symmetrical. Coordination: Xwsnic-da-myob was intact without evidence of dysmetria. Plantars were flexor bilaterally. Gait was deferred. Her daughter does report that she becomes intermittently confused as the evening progresses and told her that she felt that she was at home. IMPRESSION: 1. Encephalopathy continues to improve. 2. Parkinson disease. 3. Insomnia. 4. Restless legs syndrome. RECOMMENDATIONS: I would continue present management at this point. We will assess tonight if she is able to sleep well again tonight as she reportedly did last night. Will also assess whether or not it is secondary to her restless legs syndrome or insomnia and associated confusion if she is not able to sleep well. Continue present management. Thank you, again, Dr. Espinal and Dr. Gongora for allowing me to participate in the care of your patient. Please feel free to contact me with any questions or concerns. We will continue to follow.
[2016-08-07] MEDS: CARBIDOPA LEVODOPA PO SCH (20:31)
--- NOTE | 2016-08-07 22:14 | PCM.PNMED ---
Subjective Date of Service Aug 07, 2016 Subjective Patient is sitting up on the commode trying to have a bowel movement. She apparently has been there for quite some time and is prominent unsuccessful in having a bowel movement. She is in good spirits. She has no new complaints. Exam Vital Signs Vital Sign - Last Date Time Temp Pulse Resp B/P Pulse Ox O2 Delivery O2 Flow Rate FiO2 08/07/16 20:10 37.0 70 20 148/76 96 Room Air Intake and Output 08/06/16 08/06/16 08/07/16 Cumulative From/Thru 15:00 23:00 07:00 07/31/16 15:12 - 08/07/16 06:39 Intake Total 320 ml 200 ml 6525 ml Output Total 600 ml 400 ml 3708 ml Balance -280 ml -200 ml 2817 ml Intake Oral 320 ml 200 ml 4749 ml IV Total 1776 ml Output Urine Total 600 ml 400 ml 3678 ml Emesis 30 ml # Voids 16 # Bowel Movements 2 0 5 Exam General: Patient is in no apparent distress. HEENT: Head is atraumatic normocephalic. Eyes: Pupils are equally round and reactive to light and accommodation. Extraocular muscles are intact. Sclera are white anicteric. Subconjunctival mucosa is pink. Ears and nose are unremarkable. Oropharynx: There is no mucosal lesions, there is no thrush, there is no pharyngitis. Neck: Is supple, there are no nodes, or masses, or tenderness. Chest: Is clear to auscultation and percussion. There are no rales, rhonchi, wheezes or rubs. Heart: Rate, rhythm is regular. There is no murmur, rub or gallop. Abdomen: Good bowel sounds are present. Abdomen is soft, nontender, no organomegaly or masses were appreciated. Extremities: Are symmetrical and well perfused. There is no edema, there is no cellulitis, no rash. Neurologic: There are no focal neurological deficits. Cranial nerves II through XII are intact. There are no sensory or motor deficits. Vision exhibits some rigidity of her extremities. Psychiatric: Patients mood is calm and shows no sign of agitation. Genital: Deferred Rectal: Deferred Lab and Diagnostics Result Diagram: 08/04/16 0544 08/07/16 0446 Microbiology Name: SUNIL OSUNA Age/Sex: 86/F Attend Dr: Melquiades Caceres DO Acct: [id number] Unit: [id number] Status: REG ER Location: SED Re07/31/16 Disch: Specimen: [id number] Collected: 07/31/16 Status: COMP Req#: [id number] Received: 07/31/16 Source: EUGENIO Sp Desc : Subm Dr: Melquiades Caceres DO Ordered: RAPID FLU IRS Comments: Collected by Nurse/Unit? Y/N Y Procedure Result Verified Site Microbiology [facility] INFLUENZA RAPID AG SCREEN Final 07/31/16-1809 RESULT NEGATIVE FOR INFLUENZA TYPE A AND B This rapid assay is a screen test only for Influenza A&B and does not definitively rule out the presence of FLU A & B or other respiratory viral pathogens. The assay's sensitivity varies on the specimen type submitted. Nasal washes are optimum. Recommend respiratory viral cultures and DFA to confirm negative screens and rule out other viral pathogens. Per CDC, the sensitivity of this method is approximately 50% for H1N1. A negative result does NOT rule out Novel H1N1 (Swine Flu) X-Rays, CTs and MRIs PROCEDURE: CT BRAIN WITHOUT CONTRAST ([id number]) INDICATIONS: falls TECHNIQUE: Noncontrast 4.5 mm thick angled axial sections acquired from the foramen magnum to the vertex, with coronal reformats. COMPARISON: None. FINDINGS: Image quality: Excellent. CSF spaces: Basal cisterns are patent. No extra-axial fluid collections. The ventricles are symmetric in size and shape. Brain: No intracranial bleeds or masses. There is cerebral volume loss for age , with resultant ventricular and sulcal prominence. There are periventricular and deep white matter chronic small vessel ischemic changes. There is intracranial internal carotid artery atherosclerosis. Skull and face: Calvarium and visualized facial bones appear intact, without suspicious lesions. Sinuses: Visualized sinuses and mastoids show scattered mild mucosal thickening IMPRESSION: No acute intracranial abnormality is seen. Moderate atrophic changes. Scattered mild because of thickening is present in the sinuses. PROCEDURE: X-RAY CHEST ONE VIEW, PORTABLE ([id number]) INDICATIONS: weakness, falls TECHNIQUE: One view of the chest was acquired. COMPARISON: None. FINDINGS: Surgical changes and devices: None. Lungs and pleura: No pleural effusions or pneumothorax. Lungs are clear. Mediastinum: Mediastinal contours appear normal. Heart size is normal. Bones and chest wall: No suspicious bony lesions. Overlying soft tissues appear unremarkable. IMPRESSION: No trauma found, source of weakness and falls is not seen. Assessment & Plan 86 year old Female with h/o Parkinson Disease, DM2, HTN, anxiety, and depression , presented w/ generalized weakness worseningx2 months with increasing fallsx1 week-contributory new lorazepam, wheelchair bound x 2weeks. She recently increased her Sinemet dosage, w/ improved tremors. DR. George still optimizing medications. # Acute on chronic generalized weakness. Has not on admission ongoing - Uncertain of etiology, but likely multifactorial and worsened due to recent medication changes and overdose (pt reportedly had been taking extra doses of her Parkinson meds recently) - Besides her Parkinson medications, she had also been on multiple sedative medications including Lorazepam, Requip, Rohypnol, Tylenol PM, CBD drops, and [employer] sleep aids. - - per neurology suspect "encephalopathy may be related to medications and adjustment following reduction of dosed/possible withdrawal" -- PT order -- Per Dr. George the next step would be to stop the Ropinorole if confusion/ sedation persist. # History of Parkinson Disease, improved tremors w/ new regimen sinemet - Fall risk precautions -- carbidopa/ levodopa evening dose switched to controlled release/increased the morning dose given at 7 a.m. in the morning to two tablets, continue two tablets at noon, continue 5 p.m. one tablet. Decrease ropinirole 0.[address] George # History of Hypertension with presenting hypertensive urgency. Present on admission. ongoing but w/ change in sinemet hold increasing new lisinopril for now - there were no BP medications noted on patient's medication list - started low dose Lisinopril on 08/02/16. This dose appears to be sufficient. - Added Catapres. Will increase lisinopril in the AM - Dr. George (neurology) suspect hypertension partially due to carbidopa/ levodopa withdrawal. - f/u closely # Anxiety and Depression - Continue Fluoxetine # Diabetes Mellitus type 2 - Non Insulin Dependent, diet controlled # Insomnia. Present on admission. ongoing -- Stopped trazodone started Seroquel for sleep since insomnia contributory to admission (consider amitriptyline and nortriptyline if seroquel not helpful), per Dr. eGorge "Continue present regimen of carbidopa/levodopa immediate release and carbidopa/levodopa controlled release at bedtime. Continue physical therapy/occupational therapy. At this point she is on such a low dose of ropinirole 0.25 mg p.o. t.i.d. that, if there is a concern that the ropinirole is causing confusion, I do not see a reason why it could not be stopped. However, I do believe that it does play a role not only in control of restless legs but also in her Parkinson disease. If she continues to be confused, we may want to end up stopping the ropinirole by tapering it off; however, at this point I do recommend continuing the ropinirole at 0.25 mg 3 times daily. The Seroquel not only will help her with sleep but will also help with confusion and hallucinations. At this point I do not believe that the ropinirole is directly contributing to confusion. If she does remain confused we could certainly consider tapering this agent off; however, it is a dopamine agonist and may not only help with treatment of her restless legs syndrome but also with her Parkinson disease. Will continue to follow." -Speech and language pathology recommends ongoing therapy - Recommend puree textures, nectar thick liquids, ice chips in moderations, and medications crushed. Also recommend dietary consult to support adequate nutrition. Disposition: Patient will need to go to a intermediate facility for further rehabilitation after discharge. Pain Evaluation: Adequate Pain Control GI Prophylaxis: Not indicated VTE Prophylaxis: Sub-Q Enoxaparin VTE Mechanical Devices: Intermittant Pneumatic CD Resuscitation Status: DNR/DNI:Do Not Resuscitate/Intubate Ruy Jonas MD Aug 07, 2016 22:14
--- NOTE | 2016-08-08 04:00 | NUR ---
Tremors Pt had an episode of severe, wracking tremors during night that lasted for at least 2 hours. Tylenol given with minimal improvement, pt responds best to massage of back, arms and legs. Pt expressed severe frustration at the persistence of shaking symptoms which came in waves. Eventually intensity subsided enough for pt to doze despite continued symptoms. Hospitalist aware, no new meds ordered, continue with supportive care. Sitter at bedside.
[2016-08-08 05:19] VITALS: BP 151/64; PULSE 61; RESP 16; O2SAT 95
[2016-08-08 05:51] LABS: BASOPHILS % (AUTO) 0.5 % (0-3); EOSINOPHILS % (AUTO) 3.4 % (0-5); Mean Corpuscular Hemoglobin 30.1 pg (27.0-35.0); Mean Corpuscular Volume 93.1 fL (81-100); NEUTROPHILS % (AUTO) 61.4 % (40-74); Platelet Count 275 bil/L (150-400)
[2016-08-08 07:17] LABS: ERYTHROCYTE SEDIMENTATION RATE 9 mm/hr (0-40)
[2016-08-08 08:13] VITALS: BP 127/71; PULSE 68
[2016-08-08] MEDS: cloNIDine 0.1 mg Tablet PO SCH ×2 (08:14→20:51)
[2016-08-08 13:00] VITALS: BP 126/69; PULSE 79; RESP 16; O2SAT 96
[2016-08-08] MEDS: Alum-Mag Hydrox-Simeth 30 mL Suspension PO PRN (13:53)
[2016-08-08] MEDS: LORazepam 0.5 mg Tablet PO PRN (14:27)
[2016-08-08 14:55] LABS: APPEARANCE,URINE CLEAR (CLEAR,HAZY); COLOR,URINE STRAW (YELLOW); OCCULT BLOOD,URINE NEGATIVE (NEGATIVE); UROBILINOGEN,URINE NORMAL (NORMAL)
--- NOTE | 2016-08-08 18:09 | NUR ---
Tremors Pt in bed at approx 1300. Pt crying stating she wanted to go to the emergency department to get them to stop. Spoke to the hospitalist, ativan ordered and administered at approx 1400. Upon reassessment, pt appears comfortable and resting for approx 45min. Evening dose of Sinemet administered and w/in 30min tremors began to increase. Paged neurologist LAQUITA nicole. No new orders at this time. Bed down and in locked position, Call light w/in reach.
[2016-08-08 19:40] VITALS: BP 129/70; PULSE 66; RESP 16; O2SAT 95
[2016-08-08] MEDS: CARBIDOPA LEVODOPA PO SCH (20:52)
--- NOTE | 2016-08-08 21:19 | PCM.PNMED ---
Subjective Date of Service Aug 08, 2016 Subjective Patient is having a significant amount of anxiety and tremors today. This was alleviated by 1 dose of Ativan 0.5 mg by mouth. Patient has no other new complaints. Exam Vital Signs Vital Sign - Last Date Time Temp Pulse Resp B/P Pulse Ox O2 Delivery O2 Flow Rate FiO2 08/08/16 19:40 36.6 66 16 129/70 95 Room Air Intake and Output 08/07/16 08/07/16 08/08/16 Cumulative From/Thru 15:00 23:00 07:00 07/31/16 15:12 - 08/08/16 05:19 Intake Total 551 ml 900 ml 7976 ml Output Total 800 ml 850 ml 5358 ml Balance -249 ml 50 ml 2618 ml Intake Oral 551 ml 900 ml 6200 ml IV Total 1776 ml Output Urine Total 800 ml 850 ml 5328 ml Emesis 30 ml # Voids 16 # Bowel Movements 1 6 Exam General: Patient is in no apparent distress. Patient feels much better after 1 dose of Ativan 0.5 mg by mouth HEENT: Head is atraumatic normocephalic. Eyes: Pupils are equally round and reactive to light and accommodation. Extraocular muscles are intact. Sclera are white anicteric. Subconjunctival mucosa is pink. Ears and nose are unremarkable. Oropharynx: There is no mucosal lesions, there is no thrush, there is no pharyngitis. Neck: Is supple, there are no nodes, or masses, or tenderness. Chest: Is clear to auscultation and percussion. There are no rales, rhonchi, wheezes or rubs. Heart: Rate, rhythm is regular. There is no new murmur, rub or gallop. Abdomen: Good bowel sounds are present. Abdomen is soft, nontender, no organomegaly or masses were appreciated. Extremities: Are symmetrical and well perfused. There is no edema, there is no cellulitis, no rash. Neurologic: There are no focal neurological deficits. Cranial nerves II through XII are intact. There are no sensory or motor deficits. Patient exhibits some rigidity of her extremities. Psychiatric: Patients mood is calm and shows no sign of agitation after 1 dose of Ativan. Genital: Deferred Rectal: Deferred Lab and Diagnostics Result Diagram: 08/08/16 0453 08/08/16 0453 Microbiology Name: SUN OSUNAIE Virgie Age/Sex: 86/F Attend Dr: Melquiades Caceres DO Acct: [id number] Unit: [id number] Status: REG ER Location: SED Re07/31/16 Disch: Specimen: [id number] Collected: 07/31/16 Status: COMP Req#: [id number] Received: 07/31/16 Source: EUGENIO Crawford Desc : Subm Dr: Melquiades Caceres DO Ordered: RAPID FLU IRS Comments: Collected by Nurse/Unit? Y/N Y Procedure Result Verified Site Microbiology [facility] INFLUENZA RAPID AG SCREEN Final 07/31/16-180 RESULT NEGATIVE FOR INFLUENZA TYPE A AND B This rapid assay is a screen test only for Influenza A&B and does not definitively rule out the presence of FLU A & B or other respiratory viral pathogens. The assay's sensitivity varies on the specimen type submitted. Nasal washes are optimum. Recommend respiratory viral cultures and DFA to confirm negative screens and rule out other viral pathogens. Per CDC, the sensitivity of this method is approximately 50% for H1N1. A negative result does NOT rule out Novel H1N1 (Swine Flu) X-Rays, CTs and MRIs PROCEDURE: CT BRAIN WITHOUT CONTRAST ([id number]) INDICATIONS: falls TECHNIQUE: Noncontrast 4.5 mm thick angled axial sections acquired from the foramen magnum to the vertex, with coronal reformats. COMPARISON: None. FINDINGS: Image quality: Excellent. CSF spaces: Basal cisterns are patent. No extra-axial fluid collections. The ventricles are symmetric in size and shape. Brain: No intracranial bleeds or masses. There is cerebral volume loss for age , with resultant ventricular and sulcal prominence. There are periventricular and deep white matter chronic small vessel ischemic changes. There is intracranial internal carotid artery atherosclerosis. Skull and face: Calvarium and visualized facial bones appear intact, without suspicious lesions. Sinuses: Visualized sinuses and mastoids show scattered mild mucosal thickening IMPRESSION: No acute intracranial abnormality is seen. Moderate atrophic changes. Scattered mild because of thickening is present in the sinuses. PROCEDURE: X-RAY CHEST ONE VIEW, PORTABLE ([id number]) INDICATIONS: weakness, falls TECHNIQUE: One view of the chest was acquired. COMPARISON: None. FINDINGS: Surgical changes and devices: None. Lungs and pleura: No pleural effusions or pneumothorax. Lungs are clear. Mediastinum: Mediastinal contours appear normal. Heart size is normal. Bones and chest wall: No suspicious bony lesions. Overlying soft tissues appear unremarkable. IMPRESSION: No trauma found, source of weakness and falls is not seen. Assessment & Plan 86 year old Female with h/o Parkinson Disease, DM2, HTN, anxiety, and depression , presented w/ generalized weakness worsening for 2 months with increasing falls , approximately 1 per week, contributed to lorazepam, wheelchair bound for 2 weeks. She recently increased her Sinemet dosage, w/ improved tremors. DR. George still optimizing medications. # Acute on chronic generalized weakness. Has not on admission ongoing - Uncertain of etiology, but likely multifactorial and worsened due to recent medication changes and overdose (pt reportedly had been taking extra doses of her Parkinson meds recently. Also may have been taking lorazepam with analgesics and/or sedatives.) - Besides her Parkinson medications, she had also been on multiple sedative medications including Lorazepam, Requip, Rohypnol, Tylenol PM, CBD drops, and [employer] sleep aids. - - per neurology suspect "encephalopathy may be related to medications and adjustment following reduction of dosed/possible withdrawal". Patient anxiety and tremors were quite rapidly relieved with administration of lorazepam indicating that patient might have signs and symptoms of withdrawal from benzodiazepines -- PT order -- Per Dr. George the next step would be to stop the Ropinorole if confusion/ sedation persist. # History of Parkinson Disease, improved tremors w/ new regimen sinemet - Fall risk precautions -- carbidopa/ levodopa evening dose switched to controlled release/increased the morning dose given at 7 a.m. in the morning to two tablets, continue two tablets at noon, continue 5 p.m. one tablet. Decrease ropinirole 0.[address] bid[address] George # History of Hypertension with presenting hypertensive urgency. Present on admission. ongoing but w/ change in sinemet hold increasing new lisinopril for now - there were no BP medications noted on patient's medication list - started low dose Lisinopril on 08/02/16. This dose appears to be sufficient. - Added Catapres. - Dr. George (neurology) suspect hypertension partially due to carbidopa/ levodopa withdrawal. - f/u closely # Anxiety and Depression - Continue Fluoxetine - Concern patient may have some symptoms of withdrawal from benzodiazepines. However her daughter Jennifer states that the patient had not been on lorazepam for very long # Diabetes Mellitus type 2 - Non Insulin Dependent, diet controlled # Insomnia. Present on admission. ongoing -- Stopped trazodone started Seroquel for sleep since insomnia contributory to admission (consider amitriptyline and nortriptyline if seroquel not helpful), per Dr. George: "Continue present regimen of carbidopa/levodopa immediate release and carbidopa/levodopa controlled release at bedtime. Continue physical therapy/occupational therapy. At this point she is on such a low dose of ropinirole 0.25 mg p.o. t.i.d. that, if there is a concern that the ropinirole is causing confusion, I do not see a reason why it could not be stopped. However, I do believe that it does play a role not only in control of restless legs but also in her Parkinson disease. If she continues to be confused, we may want to end up stopping the ropinirole by tapering it off; however, at this point I do recommend continuing the ropinirole at 0.25 mg 3 times daily. The Seroquel not only will help her with sleep but will also help with confusion and hallucinations. At this point I do not believe that the ropinirole is directly contributing to confusion. If she does remain confused we could certainly consider tapering this agent off; however, it is a dopamine agonist and may not only help with treatment of her restless legs syndrome but also with her Parkinson disease. Will continue to follow." -Speech and language pathology recommends ongoing therapy - Recommend puree textures, nectar thick liquids, ice chips in moderations, and medications crushed. Also recommend dietary consult to support adequate nutrition. Disposition: Patient will need to go to a retirement facility for further rehabilitation after discharge once her medications have been stabilized.. Pain Evaluation: Adequate Pain Control GI Prophylaxis: Not indicated VTE Prophylaxis: Sub-Q Enoxaparin VTE Mechanical Devices: Intermittant Pneumatic CD Resuscitation Status: DNR/DNI:Do Not Resuscitate/Intubate Ruy Jonas MD Aug 08, 2016 21:19
--- NOTE | 2016-08-09 03:19 | NUR ---
Rest At beginning of shift patient was restless and agitated due her restless leg discomfort, and tremors. Evening medications were given, and it took the patient a couple hours to calm down. However; Patient was able to fall asleep (around 2330), and has been able to sleep for longer lengths of time without waking. Patient is currently sleeping and appears comfortable. Sitter is in room. Patient has been using FWW with SBA when going to the bathroom. Will continue care, and continue Q1 hour checks.
[2016-08-09 04:42] VITALS: BP 121/64; PULSE 64; RESP 16; O2SAT 97
[2016-08-09 06:29] LABS: BASOPHILS % (AUTO) 0.6 % (0-3); EOSINOPHILS % (AUTO) 5.2 % (0-5); MONOCYTES % (AUTO) 11.5 % (4-12); Mean Corpuscular Hemoglobin 29.7 pg (27.0-35.0); Mean Corpuscular Volume 92.6 fL (81-100); NEUTROPHILS % (AUTO) 53.5 % (40-74); Platelet Count 285 bil/L (150-400)
[2016-08-09] MEDS: cloNIDine 0.1 mg Tablet PO SCH ×2 (09:08→20:41)
[2016-08-09 11:35] VITALS: BP 128/69; PULSE 72; O2SAT 95
--- NOTE | 2016-08-09 12:25 | PCM.DIMED ---
Discharge Instructions Date of Service Aug 09, 2016 Dates of Hospitalization Jul 31, 2016 at 19:27 Discharge Diagnosis Discharge Diagnosis Parkinson's disease Tremor, acutely worsening Diabetes Hypertension Anxiety Depression Insomnia Medication Instructions Patient had her carbidopa levodopa increased as listed in hospital course. Also had ropinirole dose decreased as listed Test Results IMPRESSION: No acute intracranial abnormality is seen. Moderate atrophic changes. Scattered mild because of thickening is present in the sinuses. Dictated by: Jose A Sierra M.D. on 07/31/2016 at 17:30 Diet No restrictions, Other (-Speech and language pathologyRecommend puree textures, nectar thick ) Activity Other (Assessment ) Call your provider Fever or Chills, Shortness of breath, Chest pain Patient Instructions You are being discharged to a skilled facility to optimize rehabilitation. Your dose of carbidopa levodopa has been increased and your dose of ropinirole has been decreased. Follow-up plan He will follow with [facility] physician on staff and please follow-up with your primary care physician Dr. Ashok Aden within 1 week of discharge from the [facility] facility. Follow-up with PCP in: 1 week (after [facility] facility discharge) Provider: Angel George MD Follow-up in: 2 weeks (after's [facility] facility discharge) Julio Shelley DO Aug 09, 2016 12:25
[2016-08-09] MEDS ORDERED: CLON0.1T14 PO ×2 (12:34→14:18)
[2016-08-09] MEDS ORDERED: CARB1TAB14 PO ×2 (12:34)
[2016-08-09] MEDS ORDERED: LISI-571 PO (12:34)
[2016-08-09] MEDS ORDERED: ROPI0.25 PO ×3 (12:34→12:40)
[2016-08-09] MEDS ORDERED: CARB1TAB36 PO ×2 (12:34)
[2016-08-09] MEDS ORDERED: QUET25TA73 PO (12:47)
--- NOTE | 2016-08-09 12:49 | PCM.DC.MED ---
Discharge Summary Date of Service Aug 09, 2016 Dates of Hospitalization Date of Hospital Admission Jul 31, 2016 at 19:27 Date of Discharge: Aug 09, 2016 Providers: Admitting Physician: Yamila Castillo MD Primary Care Physician: Ashok Aden MD Attending Physician: Yamila Castillo MD Diagnosis at Time of Discharge Diagnosis at Time of Discharge Parkinson's disease Tremor, acutely worsening Diabetes Hypertension Anxiety Depression Insomnia Consultations Dr. perdomo of neurology Procedures XRay, CTs & MRIs PROCEDURE: CT BRAIN WITHOUT CONTRAST ([id number]) INDICATIONS: falls TECHNIQUE: Noncontrast 4.5 mm thick angled axial sections acquired from the foramen magnum to the vertex, with coronal reformats. COMPARISON: None. FINDINGS: Image quality: Excellent. CSF spaces: Basal cisterns are patent. No extra-axial fluid collections. The ventricles are symmetric in size and shape. Brain: No intracranial bleeds or masses. There is cerebral volume loss for age , with resultant ventricular and sulcal prominence. There are periventricular and deep white matter chronic small vessel ischemic changes. There is intracranial internal carotid artery atherosclerosis. Skull and face: Calvarium and visualized facial bones appear intact, without suspicious lesions. Sinuses: Visualized sinuses and mastoids show scattered mild mucosal thickening IMPRESSION: No acute intracranial abnormality is seen. Moderate atrophic changes. Scattered mild because of thickening is present in the sinuses. PROCEDURE: X-RAY CHEST ONE VIEW, PORTABLE ([id number]) INDICATIONS: weakness, falls TECHNIQUE: One view of the chest was acquired. COMPARISON: None. FINDINGS: Surgical changes and devices: None. Lungs and pleura: No pleural effusions or pneumothorax. Lungs are clear. Mediastinum: Mediastinal contours appear normal. Heart size is normal. Bones and chest wall: No suspicious bony lesions. Overlying soft tissues appear unremarkable. IMPRESSION: No trauma found, source of weakness and falls is not seen. 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 Per report, patient has also fallen on several occasions in the past week and has been complaining of general myalgia, fatigue, and general discomfort. Her neurologist believes her symptoms may be due to overdosage of her medications, and along with addition of Lorazepam to her regimen, this may be causing her recent falls. She is unable to localize her discomforts, but denies any recent fevers, chills, N/V/D, abdominal pain, SOB, or anginal symptoms. Her Sinemet dosage was double a week ago, which has helped with her tremors, but her weakness remains. Her fluid and PO intake has also been fairly decreased. In the ED, patient was found to be hypertensive at 224/84. Her CBC and CMP was reassuring except for Sodium of 130. Her UA was unremarkable. CXR and CT brain did not show any acute disease process. Rapid Flu screen was negative. EKG was sinus rhythm with rate in the 80s. She did receive a Liter of NS and 30mg of IV Labetalol for blood pressure control. Hospital Course 86 year old Female with h/o Parkinson Disease, DM2, HTN, anxiety, and depression , presented w/ generalized weakness worsening for 2 months with increasing falls , approximately 1 per week, contributed to lorazepam, wheelchair bound for 2 weeks. She recently increased her Sinemet dosage, w/ improved tremors. DR. Perdomo has change medications to increase her carbidopa levodopa and decrease her ropinirole as noted below # Acute on chronic generalized weakness. Has not on admission ongoing - Uncertain of etiology, but likely multifactorial and worsened due to recent medication changes and overdose (pt reportedly had been taking extra doses of her Parkinson meds recently. Also may have been taking lorazepam with analgesics and/or sedatives.) - Besides her Parkinson medications, she had also been on multiple sedative medications including Lorazepam, Requip, Rohypnol, Tylenol PM, CBD drops, and [facility] sleep aids. - - per neurology suspect "encephalopathy may be related to medications and adjustment following reduction of dosed/possible withdrawal". Patient anxiety and tremors were quite rapidly relieved with administration of lorazepam indicating that patient might have signs and symptoms of withdrawal from benzodiazepines -- PT order -- Per Dr. Perdomo the next step would be to stop the Ropinorole if confusion/ sedation persist - presently just decreased ropinirole to 0.25 twice a day # History of Parkinson Disease, improved tremors w/ new regimen sinemet - Fall risk precautions -- Per recommendations of Dr. Perdomo - carbidopa/ levodopa evening dose switched to controlled release/increased the morning dose given at 7 a.m. in the morning to two tablets, continue two tablets at noon, continue 5 p.m. one tablet and 2 tablets in the evening before dinner. Decrease ropinirole 0.[address] bid. per Dr Perdomo # History of Hypertension with presenting hypertensive urgency. Present on admission. ongoing but w/ change in sinemet hold increasing new lisinopril for now - there were no BP medications noted on patient's medication list - started Catapres and low dose Lisinopril on 08/02/16. This dose appears to be sufficient. We will discharge patient to continue Catapres and lisinopril - Dr. Perdomo (neurology) suspect hypertension partially due to carbidopa/ levodopa withdrawal. Patient struck to call for follow-up with Dr. perdomo # Anxiety and Depression - Continue Fluoxetine - Concern patient may have some symptoms of withdrawal from benzodiazepines. However her daughter Jennifer states that the patient had not been on lorazepam for very long # Diabetes Mellitus type 2 - Non Insulin Dependent, diet controlled # Insomnia. Present on admission. ongoing -- Stopped trazodone started Seroquel for sleep since insomnia contributory to admission (consider amitriptyline and nortriptyline if seroquel not helpful), per Dr. Perdomo: "Continue present regimen of carbidopa/levodopa immediate release and carbidopa/levodopa controlled release at bedtime. Continue physical therapy/occupational therapy. At this point she is on such a low dose of ropinirole 0.25 mg p.o. t.i.d. that, if there is a concern that the ropinirole is causing confusion, I do not see a reason why it could not be stopped. However, I do believe that it does play a role not only in control of restless legs but also in her Parkinson disease. If she continues to be confused, we may want to end up stopping the ropinirole by tapering it off; however, at this point I do recommend continuing the ropinirole at 0.25 mg 3 times daily. The Seroquel not only will help her with sleep but will also help with confusion and hallucinations. At this point I do not believe that the ropinirole is directly contributing to confusion. If she does remain confused we could certainly consider tapering this agent off; however, it is a dopamine agonist and may not only help with treatment of her restless legs syndrome but also with her Parkinson disease. Will continue to follow." -Speech and language pathology recommends ongoing therapy - Recommend puree textures, nectar thick liquids, ice chips in moderations, and medications crushed. Also recommend dietary consult to support adequate nutrition. Disposition: Patient will need to go to a fdc facility for further rehabilitation after discharge once her medications have been stabilized.. Exam Vital Signs (Last) Date Time Temp Pulse Resp B/P Pulse Ox O2 Delivery O2 Flow Rate FiO2 08/09/16 11:35 36.3 72 128/69 95 Room Air 08/09/16 04:42 16 Exam General: Patient is in no apparent distress. Patient feels much better after 1 dose of Ativan 0.5 mg by mouth HEENT: Head is atraumatic normocephalic. Eyes: Pupils are equally round and reactive to light and accommodation. Extraocular muscles are intact. Sclera are white anicteric. Subconjunctival mucosa is pink. Ears and nose are unremarkable. Oropharynx: There is no mucosal lesions, there is no thrush, there is no pharyngitis. Neck: Is supple, there are no nodes, or masses, or tenderness. Chest: Is clear to auscultation and percussion. There are no rales, rhonchi, wheezes or rubs. Heart: Rate, rhythm is regular. There is no new murmur, rub or gallop. Abdomen: Good bowel sounds are present. Abdomen is soft, nontender, no organomegaly or masses were appreciated. Extremities: Are symmetrical and well perfused. There is no edema, there is no cellulitis, no rash. Neurologic: There are no focal neurological deficits. Cranial nerves II through XII are intact. There are no sensory or motor deficits. Patient exhibits some rigidity of her extremities. Psychiatric: Patients mood is calm and shows no sign of agitation after 1 dose of Ativan. Test 07/31/16 15:10 07/31/16 15:58 08/07/16 04:46 08/08/16 04:53 Hold Urine Received (Received) Lactic Acid Level 1.0mmol/L (0.4-2.0) Troponin T < 0.010ug/L (0.0-0.011) Pro-B-Type Natriuretic Peptide 801.9pg/mL (0-738) Thyroid Stimulating Hormone (TSH) 0.741uIU/mL (0.450-4.500) Free Thyroxine 1.42ng/dL (0.82-1.77) Magnesium Level 2.4mg/dL (1.6-2.6) Erythrocyte Sedimentation Rate 9mm/hr (0-40) C-Reactive Protein 0.1mg/dL (0.0-0.5) Procalcitonin < 0.05ng/mL (See Comment) Test 08/08/16 14:25 08/09/16 05:55 Urine Color Straw (YELLOW) Urine Appearance Clear (CLEAR,HAZY) Urine pH 7.0 (5.0-8.0) Urine Specific [place] 1.010 (1.003-1.035) Urine Protein Negativemg/dL (NEG,TRACE) Urine Glucose (UA) Negativemg/dL (NEGATIVE) Urine Ketones Negativemg/dL (NEGATIVE) Urine Occult Blood Negative (NEGATIVE) Urine Nitrite Negative (NEGATIVE) Urine Bilirubin Negative (NEGATIVE) Urine Urobilinogen Normalmg/dL (NORMAL) Urine Leukocyte Esterase Negative (NEGATIVE) Urine RBC 0-2/hpf (0-2) Urine WBC 0-5/hpf (0-5) Urine Epithelial Cells Occasional/hpf (NONE-MOD) Urine Crystals None seen (NONE SEEN) Urine Bacteria None/hpf (NONE-FEW) Urine Hyaline Casts None/lpf (NONE) Urine Granular Casts None seen (NONE SEEN) Urine Waxy Casts None seen (NONE SEEN) Urine Red Blood Cell Casts None seen (NONE SEEN) Urine White Blood Cell Casts None seen (NONE SEEN) Urine Mucus None seen (None Seen) Urine Trichomonas None seen (NONE SEEN) Urine Yeast None (NONE SEEN) Urinalysis Comment None Urine Culture Reflexed Not indicated White Blood Count 5.4th/mm3 (3.8-10.1) Red Blood Count 3.90mil/mm3 (3.90-5.20) Hemoglobin 11.6g/dL (12.0-15.6) Hematocrit 36.1% (35.0-46.0) Mean Corpuscular Volume 92.6fL (81-100) Mean Corpuscular Hemoglobin 29.7pg (27.0-35.0) Mean Corpuscular Hemoglobin Concent 32.1% (32.0-37.0) Red Cell Distribution Width 13.6% (12.3-15.4) Platelet Count 285bil/L (150-400) Neutrophils (%) (Auto) 53.5% (40-74) Lymphocytes (%) (Auto) 28.5% (14-46) Monocytes (%) (Auto) 11.5% (4-12) Eosinophils (%) (Auto) 5.2% (0-5) Basophils (%) (Auto) 0.6% (0-3) Sodium Level 136mEq/L (134-144) Potassium Level 4.9mEq/L (3.5-5.2) Chloride Level 99mEq/L (97-108) Carbon Dioxide Level 27mmol/L (18-29) Blood Urea Nitrogen 32mg/dL (8-27) Creatinine 1.11mg/dL (0.57-1.00) Estimat Glomerular Filtration Rate 67mL/min (>59) Glucose Level 99mg/dL (60-99) Calcium Level 8.9mg/dL (8.5-10.1) Total Bilirubin 0.5mg/dL (0.0-1.2) Aspartate Amino Transf (AST/SGOT) 20U/L (0-50) Alanine Aminotransferase (ALT/SGPT) 5U/L (0-32) Alkaline Phosphatase 76U/L (25-165) Total Protein 5.9g/dL (6.4-8.4) Albumin 3.9g/dL (3.4-5.0) Microbiology Results Name: SUNIL OSUNA Age/Sex: 86/F Attend Dr: Melquiades Caceres DO Acct: [id number] Unit: [id number] Status: REG ER Location: SED Re07/31/16 Disch: Specimen: [id number] Collected: 07/31/16 Status: FABIO Reeyad#: [id number] Received: 07/31/16 Source: EUGENIO Crawford Desc : Javier Dr: Melquiades Caceres DO Ordered: RAPID FLU IRS Comments: Collected by Nurse/Unit? Y/N Y Procedure Result Verified Site Microbiology [facility] INFLUENZA RAPID AG SCREEN Final 07/31/16 RESULT NEGATIVE FOR INFLUENZA TYPE A AND B This rapid assay is a screen test only for Influenza A&B and does not definitively rule out the presence of FLU A & B or other respiratory viral pathogens. The assay's sensitivity varies on the specimen type submitted. Nasal washes are optimum. Recommend respiratory viral cultures and DFA to confirm negative screens and rule out other viral pathogens. Per CDC, the sensitivity of this method is approximately 50% for H1N1. A negative result does NOT rule out Novel H1N1 (Swine Flu) Discharge Medications Discharge Medications Carbidopa/Levodopa 25-100 mg (Carbidopa/Levodopa 25-100 mg) 1 Each Tablet 1 TABLET PO TID Prescribed by: CHRIS CHOI DO Carbidopa/Levodopa 25-100 mg (Carbidopa/Levodopa 25-100 mg) 1 Each Tablet 2 TABLET PO Prescribed by: CHRIS CHOI DO Carbidopa/Levodopa ER 25-100 mg (Carbidopa/Levodopa ER 25-100 mg) 1 Each Tablet 1 TABLET PO HS Prescribed by: CHRIS CHOI DO Carbidopa/Levodopa ER 25-100 mg (Carbidopa/Levodopa ER 25-100 mg) 1 Each Tablet 2 TABLET PO HS Prescribed by: CHRIS CHOI DO Celecoxib (Celecoxib) 200 Mg Capsule 200 MG PO BID (Reported) Cholecalciferol (Vitamin D3) (Vitamin D) 1,000 Unit Capsule 1,000 UNIT PO DAILY (Reported) Clonidine (Catapres) 0.1 Mg Tablet 0.1 MG PO BID Prescribed by: CHRIS CHOI DO Fluoxetine (Fluoxetine) 40 Mg Capsule 40 MG PO HS (Reported) Lisinopril (Lisinopril) 5 Mg Tablet 5 MG PO DAILY Prescribed by: CHRIS CHOI DO Ropinirole (Requip) 0.25 Mg Tablet 0.25 MG PO TID (Reported) Ropinirole (Requip) 0.25 Mg Tablet 0.5 MG PO 19 Prescribed by: CHRIS CHOI DO Ropinirole (Requip) 0.25 Mg Tablet 0.25 MG PO 12 Prescribed by: CHRIS CHOI DO As needed Acetaminophen (Acetaminophen) 325 Mg Tablet 325 MG PO Q4H PRN PRN For Pain ( Reported) Lorazepam (Lorazepam) 0.5 Mg Tablet 0.5 MG PO HS PRN PRN For Insomnia (Reported ) Additional med instructions Patient had her carbidopa levodopa increased as listed in hospital course. Also had ropinirole dose decreased as listed Followup Plan Follow-up plan He will follow with the [facility] physician on staff and please follow-up with your primary care physician Dr. Ashok Aden within 1 week of discharge from the [facility]. Discharge Diet: No restrictions, Other (-Speech and language pathologyRecommend puree textures, nectar thick ) Discharge Activity: Other (Assessment ) Patient Instructions You are being discharged to a skilled facility to optimize rehabilitation. Your dose of carbidopa levodopa has been increased and your dose of ropinirole has been decreased. Follow-up with PCP in: 1 week (after [facility] facility discharge) Provider: Angel Perdomo MD Follow-up in: 2 weeks (after's [facility] facility discharge) Mid-level Provider: Ashok Aden MD Follow-up with Mid-level in: 1 week (after [facility] facility discharge) Time spent 45 minutes spent with evaluation and management this patient including discharge , greater than 50% time spent in [id number] copies to: Angel Perdomo MD; Ashok Aden MD, David DO Aug 09, 2016 12:49
[2016-08-09] MEDS: Alum-Mag Hydrox-Simeth 30 mL Suspension PO PRN (13:37)
--- NOTE | 2016-08-09 13:47 | NUR ---
Pt. was restless and anxious from leg tremors, and unable to sleep previous 4 days. changed med orders and a quiet environment with low stimulation and 1on1 interaction was implemented. Pt. was able to rest at night and is in better spirits today; comfortably resting for an hour at 1000, eyes closed, and consistent regular breathing. This afternoon Pt was up, alert, conversing, and joking with the nurse and sitter.
[2016-08-09] MEDS ORDERED: LORA0.5T PO (14:18)
--- NOTE | 2016-08-09 15:20 | NUR ---
Freddie Wynn from [facility] will still be in tonight to do a bedside assessment, patient will be sitter free for 24 hours tomorrow and patient can transfer. IT ARCHITECT is also aware of the plan.
--- NOTE | 2016-08-09 15:53 | NUR ---
Social Work: Continued Discharge Planning Data & Assessment: EMR Reviewed. GAUDENCIO spoke with Freddie at [facility] to discuss patient's discharge. [facility] notified GAUDENCIO that the patient's insurance has given authorization for [facility], but [facility] will need to come in and complete a bedside assessment on the patient since the patient has been with a sitter. Freddie with [facility] will complete a bedside assessment on the patient, but stated that they will now not be able to accept the patient until 08/10/15 because the bedside assessment is so late in the afternoon. GAUDENCIO notified patient's son, Balaji [phone], and he voiced understanding. GAUDENCIO faxed patient's PASSR to [facility]. GAUDENCIO will continue to follow. Plan: It is likely that the patient will discharge on 08/10/16 to [facility] via cabulance. GAUDENCIO will continue to follow. Blanca Thompson LMSW, ACM
[2016-08-09 15:55] VITALS: BP 117/72; PULSE 69; RESP 16; O2SAT 94
--- NOTE | 2016-08-09 17:50 | NUR ---
Activity Pt w/ sitter most of shift. Trial off sitter for Rehab transfer, bed alarm and chair alarms on. Pt using call light appropriately after education on importance. No significant tremors noted this shift. Bed down and locked, call light w/in reach
[2016-08-09] MEDS ORDERED: diphenhydrAMINE-Zinc 2%-0.1% 30 Gm Cream TOPICAL PRN (18:05)
[2016-08-09 19:40] VITALS: BP 126/77; PULSE 70; RESP 16; O2SAT 93
[2016-08-09] MEDS: CARBIDOPA LEVODOPA PO SCH (20:42)
--- NOTE | 2016-08-09 22:02 | PROG NOTE ---
[address] [address] PROGRESS NOTE PATIENT: SUNIL OSUNA : 1930 MR#: [id number] ADMIT: 07/31/2016 JOB ID: [id number] DATE: 08/08/2016 SUBJECTIVE: Nursing staff does report that overnight the patient noted worsening of her tremors and had difficulty sleeping throughout the night. No other new neurologic symptoms were noted. PHYSICAL EXAMINATION: Vital signs: Temperature 36.6, pulse of 79 respiratory rate of 16, blood pressure 126/69, pulse oximetry 96% on room air. General: She is a well-developed, well-nourished woman in no acute distress, appeared more alert and awake today. Head: Normocephalic, atraumatic. Neck is supple. No carotid bruits were auscultated. Chest clear to auscultation. Heart: Regular rate and rhythm. Abdomen: Soft, nondistended, nontender. Extremities: No cyanosis, clubbing, or edema. NEUROLOGIC EXAMINATION: Mental status: She is awake, alert, oriented x3. Today speech is clear and fluent. There is no aphasia. Cranial nerves: Pupils were equal, round, reactive to light. Extraocular movements were smooth and conjugate with no evidence of nystagmus. Face appeared symmetrical. Facial sensation was intact to light touch and temperature. Auditory sensation was intact to finger rub. Palatal elevation was symmetrical. Tongue was midline. Sternocleidomastoid and trapezii were 5/5 bilaterally. Motor: There was an intermittent slight 4-6 hertz resting tremor principally in the left upper extremity. She was examined at 5:30 p.m. Tone appeared improved in the left upper extremity. Sensation was intact to light touch and temperature. Deep tendon and reflexes were symmetrical. Coordination: [id number]-ca-pwme was intact without evidence of dysmetria. Plantars were flexor bilaterally. Gait was deferred. I discussed with the patient what her symptoms had been the night before and she reports that she felt that it was her tremors that were more severe and that were keeping her up as opposed to her restless legs syndrome. IMPRESSION: 1. Encephalopathy which continues to improve, however, due to the severity of her Parkinson disease, slight medication changes need to be made on an inpatient basis due to the severity of her Parkinson disease and related encephalopathy. 2. Parkinson disease. 3. Insomnia. 4. Restless legs syndrome. RECOMMENDATIONS: Increase carbidopa/levodopa 25/100 extended release to two tablets at night. Otherwise continue the same regimen. Thank you, again, Dr. Jonas, for allowing me to participate in the care of your patient. Please feel free to contact me with any questions or concerns. We will continue to follow.
--- NOTE | 2016-08-09 22:50 | PROG NOTE ---
[address] [address] PROGRESS NOTE PATIENT: SUNIL OSUNA : 1930 MR#: [id number] ADMIT: 07/31/2016 JOB ID: [id number] DATE: 08/09/2016 NEUROLOGY PROGRESS NOTE: SUBJECTIVE: The patient reports that she has noted improvement and slept well last night. She also appears far less tremulous today and tremors appear to be much better controlled. PHYSICAL EXAMINATION: Temperature 36.3, pulse of 72, respiratory rate of 16, blood pressure 128/69, and pulse oximetry 95% on room air. General: She is a well-developed, well-nourished woman in no acute distress. Appears much more alert and awake and oriented x3 today. She was aware of the upcoming presidential inauguration which is tomorrow. Does not have any on going hallucinations. Head: Normocephalic, atraumatic. Neck was supple. No carotid bruits were auscultated. Chest: Clear to auscultation. Heart: Regular rate and rhythm. Abdomen: Soft, nondistended, nontender. Extremities: No cyanosis, clubbing, or edema. NEUROLOGIC EXAMINATION: Mental status: She is awake, alert, oriented x3 today. Speech is clear and fluent. There was no aphasia. Cranial nerves: Pupils equal, round, and reactive to light. Extraocular movements were smooth and conjugate with no evidence of nystagmus. Face appeared symmetrical. Facial sensation was intact to light touch and temperature. Auditory sensation was intact to finger rub. Palatal elevation was symmetrical. Tongue was midline. Sternocleidomastoid and trapezii were 5/5 bilaterally. Motor: There was a trace intermittent 4-6 hertz resting tremor. Tone was 1 bilaterally. She was examined at 8:30 p.m. Tone appeared improved today compared to yesterday, that is there is far less tone. Sensation was intact to light touch and temperature. Deep tendon reflexes were symmetrical. Plantars were flexor bilaterally. Coordination: Dafhrc-sp-zkra was intact without evidence of dysmetria. Gait was deferred. IMPRESSION: 1. Encephalopathy. 2. Resolving Parkinson disease. 3. Insomnia. 4. Restless legs syndrome. RECOMMENDATIONS: I would change the ropinirole dose to 0.25 mg t.i.d. In the event that she continues to have an abrupt wearing off, at around 5 p.m. I would increase the carbidopa/levodopa.dose to 1-1/2 tablets or move the administration time 1st to 4:30 p.m. I do recommend following up with her primary care provider as an outpatient within a week and following up in my clinic. Thank you, again, Dr. Jonas, for allowing me to participate in the care of your patient. Please feel free to contact me with any questions or concerns.
--- NOTE | 2016-08-10 03:53 | NUR ---
Rest At beginning of shift patient was restless and agitated due her restless leg discomfort, and tremors. Evening medications were given, and it took the patient a couple hours to calm down, just as yesterday. Once patient was able to fall asleep she has been able to sleep for adequate lengths of time. Patient is not started to become agitated again, and restless at 0400. Will continue to monitor, and continue Q1 hour checks.
[2016-08-10 04:42] VITALS: BP 131/80; PULSE 72; RESP 17; O2SAT 94
[2016-08-10 05:41] LABS: BASOPHILS % (AUTO) 0.5 % (0-3); EOSINOPHILS % (AUTO) 4.5 % (0-5); Mean Corpuscular Hemoglobin 30.3 pg (27.0-35.0); Mean Corpuscular Volume 92.3 fL (81-100); NEUTROPHILS % (AUTO) 56.9 % (40-74); Platelet Count 301 bil/L (150-400)
[2016-08-10 08:11] VITALS: BP 145/65; PULSE 64; RESP 16; O2SAT 97
[2016-08-10] MEDS: cloNIDine 0.1 mg Tablet PO SCH ×2 (08:47→20:51)
--- NOTE | 2016-08-10 10:39 | NUR ---
Spoke with Freddie Wynn and he did a bedside assessment, he thinks this patient looks better in person and she is going to need bed by the nurses station and she is not going to be able to admit over this weekend. Saturday would be the earliest and he would need to make sure his MD approves this transfer as well. 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
[2016-08-10] MEDS: LORazepam 0.5 mg Tablet PO PRN (10:51)
--- NOTE | 2016-08-10 11:40 | PCM.PNMED ---
Subjective Date of Service Aug 10, 2016 Subjective Patient seen with tremors that started worsening this morning. Noted increase of ropinirole per Dr. perdomo. We will give dose of lorazepam today. Discharge held yesterday due to issues with beds at long term facility. Exam Vital Signs Vital Sign - Last Date Time Temp Pulse Resp B/P Pulse Ox O2 Delivery O2 Flow Rate FiO2 08/10/16 08:11 36.4 64 16 145/65 97 Room Air Intake and Output 08/09/16 08/09/16 08/10/16 Cumulative From/Thru 15:00 23:00 07:00 07/31/16 15:12 - 08/10/16 04:42 Intake Total 838 ml 1020 ml 69484 ml Output Total 884 ml 550 ml 8392 ml Balance -46 ml 470 ml 3292 ml Intake Oral 838 ml 1020 ml 9908 ml IV Total 1776 ml Output Urine Total 884 ml 550 ml 8362 ml Emesis 30 ml # Voids 3 21 # Bowel Movements 0 1 8 Exam General: Patient is in no apparent distress. Patient feels much better after 1 dose of Ativan 0.5 mg by mouth HEENT: Head is atraumatic normocephalic. Eyes: Pupils are equally round and reactive to light and accommodation. Extraocular muscles are intact. Sclera are white anicteric. Subconjunctival mucosa is pink. Ears and nose are unremarkable. Oropharynx: There is no mucosal lesions, there is no thrush, there is no pharyngitis. Neck: Is supple, there are no nodes, or masses, or tenderness. Chest: Is clear to auscultation and percussion. There are no rales, rhonchi, wheezes or rubs. Heart: Rate, rhythm is regular. There is no new murmur, rub or gallop. Abdomen: Good bowel sounds are present. Abdomen is soft, nontender, no organomegaly or masses were appreciated. Extremities: Are symmetrical and well perfused. There is no edema, there is no cellulitis, no rash. Neurologic: There are no focal neurological deficits. Cranial nerves II through XII are intact. There are no sensory or motor deficits. Patient exhibits some rigidity of her extremities. Psychiatric: Patients mood is calm IVs and Medications Medications Reviewed: Medications were reviewed in detail Lab and Diagnostics Result Diagram: 08/10/160 08/10/16 0450 Microbiology Name: SUNIL OSUNA Age/Sex: 86/F Attend Dr: Melquiades Caceres DO Acct: [id number] Unit: [id number] Status: REG ER Location: SED Re07/31/16 Disch: Specimen: [id number] Collected: 07/31/16 Status: COMP Req#: [id number] Received: 07/31/16 Source: EUGENIO Crawford Desc : Subm Dr: Melquiades Caceres DO Ordered: RAPID FLU IRS Comments: Collected by Nurse/Unit? Y/N Y Procedure Result Verified Site Microbiology [facility] INFLUENZA RAPID AG SCREEN Final 07/31/16-180 RESULT NEGATIVE FOR INFLUENZA TYPE A AND B This rapid assay is a screen test only for Influenza A&B and does not definitively rule out the presence of FLU A & B or other respiratory viral pathogens. The assay's sensitivity varies on the specimen type submitted. Nasal washes are optimum. Recommend respiratory viral cultures and DFA to confirm negative screens and rule out other viral pathogens. Per CDC, the sensitivity of this method is approximately 50% for H1N1. A negative result does NOT rule out Novel H1N1 (Swine Flu) X-Rays, CTs and MRIs PROCEDURE: CT BRAIN WITHOUT CONTRAST ([id number]) INDICATIONS: falls TECHNIQUE: Noncontrast 4.5 mm thick angled axial sections acquired from the foramen magnum to the vertex, with coronal reformats. COMPARISON: None. FINDINGS: Image quality: Excellent. CSF spaces: Basal cisterns are patent. No extra-axial fluid collections. The ventricles are symmetric in size and shape. Brain: No intracranial bleeds or masses. There is cerebral volume loss for age , with resultant ventricular and sulcal prominence. There are periventricular and deep white matter chronic small vessel ischemic changes. There is intracranial internal carotid artery atherosclerosis. Skull and face: Calvarium and visualized facial bones appear intact, without suspicious lesions. Sinuses: Visualized sinuses and mastoids show scattered mild mucosal thickening IMPRESSION: No acute intracranial abnormality is seen. Moderate atrophic changes. Scattered mild because of thickening is present in the sinuses. PROCEDURE: X-RAY CHEST ONE VIEW, PORTABLE ([id number]) INDICATIONS: weakness, falls TECHNIQUE: One view of the chest was acquired. COMPARISON: None. FINDINGS: Surgical changes and devices: None. Lungs and pleura: No pleural effusions or pneumothorax. Lungs are clear. Mediastinum: Mediastinal contours appear normal. Heart size is normal. Bones and chest wall: No suspicious bony lesions. Overlying soft tissues appear unremarkable. IMPRESSION: No trauma found, source of weakness and falls is not seen. Assessment & Plan 86 year old Female with h/o Parkinson Disease, DM2, HTN, anxiety, and depression , presented w/ generalized weakness worsening for 2 months with increasing falls , approximately 1 per week, contributed to lorazepam, wheelchair bound for 2 weeks. She recently increased her Sinemet dosage, w/ improved tremors. DR. Perdomo has change medications to increase her carbidopa levodopa and decrease her ropinirole as noted below # Acute on chronic generalized weakness. Has not on admission ongoing - Uncertain of etiology, but likely multifactorial and worsened due to recent medication changes and overdose (pt reportedly had been taking extra doses of her Parkinson meds recently. Also may have been taking lorazepam with analgesics and/or sedatives.) - Besides her Parkinson medications, she had also been on multiple sedative medications including Lorazepam, Requip, Rohypnol, Tylenol PM, CBD drops, and [employer] signature sleep aids. - - per neurology suspect "encephalopathy may be related to medications and adjustment following reduction of dosed/possible withdrawal". Patient anxiety and tremors were quite rapidly relieved with administration of lorazepam indicating that patient might have signs and symptoms of withdrawal from benzodiazepines -- PT order -- Per Dr. Perdomo the next step would be to stop the Ropinorole if confusion/ sedation persist - presently just decreased ropinirole to 0.25 twice a day # History of Parkinson Disease, improved tremors w/ new regimen sinemet - Fall risk precautions -- Per recommendations of Dr. Perdomo - carbidopa/ levodopa evening dose switched to controlled release/increased the morning dose given at 7 a.m. in the morning to two tablets, continue two tablets at noon, continue 5 p.m. one tablet and 2 tablets in the evening before dinner. Changed ropinirole 0.25 mg p.o. to [address] Perdomo -Give dose of lorazepam today given worsening tremor # History of Hypertension with presenting hypertensive urgency. Present on admission. ongoing but w/ change in sinemet hold increasing new lisinopril for now - there were no BP medications noted on patient's medication list - started Catapres and low dose Lisinopril on 08/02/16. This dose appears to be sufficient. We will discharge patient to continue Catapres and lisinopril - Dr. Perdomo (neurology) suspect hypertension partially due to carbidopa/ levodopa withdrawal. Patient struck to call for follow-up with Dr. perdomo # Anxiety and Depression - Continue Fluoxetine - Concern patient may have some symptoms of withdrawal from benzodiazepines. However her daughter Jennifer states that the patient had not been on lorazepam for very long # Diabetes Mellitus type 2 - Non Insulin Dependent, diet controlled # Insomnia. Present on admission. ongoing -- Stopped trazodone started Seroquel for sleep since insomnia contributory to admission (consider amitriptyline and nortriptyline if seroquel not helpful), per Dr. Perdomo: "Continue present regimen of carbidopa/levodopa immediate release and carbidopa/levodopa controlled release at bedtime. Continue physical therapy/occupational therapy. At this point she is on such a low dose of ropinirole 0.25 mg p.o. t.i.d. that, if there is a concern that the ropinirole is causing confusion, I do not see a reason why it could not be stopped. However, I do believe that it does play a role not only in control of restless legs but also in her Parkinson disease. If she continues to be confused, we may want to end up stopping the ropinirole by tapering it off; however, at this point I do recommend continuing the ropinirole at 0.25 mg 3 times daily. The Seroquel not only will help her with sleep but will also help with confusion and hallucinations. At this point I do not believe that the ropinirole is directly contributing to confusion. If she does remain confused we could certainly consider tapering this agent off; however, it is a dopamine agonist and may not only help with treatment of her restless legs syndrome but also with her Parkinson disease. Will continue to follow." -Speech and language pathology recommends ongoing therapy - Recommend puree textures, nectar thick liquids, ice chips in moderations, and medications crushed. Also recommend dietary consult to support adequate nutrition. Pain Evaluation: Adequate Pain Control GI Prophylaxis: Not indicated VTE Prophylaxis: Sub-Q Enoxaparin VTE Mechanical Devices: Intermittant Pneumatic CD Resuscitation Status: DNR/DNI:Do Not Resuscitate/Intubate Time spent 30 minutes spent with patient care Julio Shelley DO Aug 10, 2016 11:40
[2016-08-10 15:02] VITALS: BP 106/62; PULSE 73; RESP 17; O2SAT 95
--- NOTE | 2016-08-10 15:11 | NUR ---
Social Work: Continued Discharge Planning Data & Assessment: Environmental Science Instructor spoke with Freddie at [facility] [phone] and he stated that they were not able to accept the patient until Saturday because they wanted her near the nurses station. Environmental Science Instructor call patient's son, Balaji [phone], and notified him that the patient's discharge was changed to 08/13/16. He voiced understanding. Patient is likely to discharge to [facility] on 08/13/16. SW will continue to follow. Plan: Patient is likely to discharge to [facility] on 08/13/16. SW will continue to follow. Blanca Thompson LMSW, ACM
--- NOTE | 2016-08-10 15:17 | NUR ---
NUTRITION FOLLOW UP: ASSESS: 86 YO female admitted for pneumonia and altered LOC, likely medication-induced. Pt awaiting d/c to SNF when bed is available. Diet advanced to soft per ST and pt tolerating well. Pt states her appetite has improved. She denies any recent wt loss. Pt would like magic cups to continue being sent. PMHX: Parkinsons, DM II, HTN, anxiety, depression, restless leg syndrome, anemia, HLD, OA, hysterectomy, hip and knee replacements x2 LABS: Reviewed. BUN 31, Cr 1.08, Glu 102 MEDS: Reviewed. Seroquel GI: BM x 1 (08/10) SKIN: [place] 19 CURRENT WT: 68.6 kg, BMI: 26.8 kg/m2, IBW: 52.3 kg DIET: Soft, PO 40-100% ESTIMATED NEEDS: Calories: 7691-6019 kcal/day (25-30 kcal/kg BW) Protein: 70-80 g/day (1.0-1.2 g/kg BW) NUTRITION DIAGNOSIS: 1.) Chewing/swallowing difficulties related to generalized weakness and altered level of consciousness as evidenced by altered texture diet per ST evaluation.---IMPROVED 2.) Inadequate oral intake related to generalized weakness and chronic disease as evidenced by PO 50%.---IMPROVED. NUTRITION INTERVENTION: 1.) Will continue Magic Cups BID MONITOR/EVALUATE: Diet advance/tolerance, PO, diet, GI, POC. Follow per moderate nutrition risk guidelines. Addendum: 08/10/16 at [address] GAIL Patel will continue being sent not Magic Cups
--- NOTE | 2016-08-10 16:44 | NUR ---
Activity Pt up to bedside chair for meals. [place] alarm on. Pt gets up and oob without using the call light. Educated pt about using call light and positioned near RN station. This morning pt was having some tremors, Ativan and noon dose of carbidopa levodopa was given. Pt was able to settle down and sleep a little bit. Will continue to encourage pt to use call light. Care continues.
[2016-08-10 19:35] VITALS: BP 129/77; PULSE 74; RESP 17; O2SAT 96
[2016-08-10] MEDS: CARBIDOPA LEVODOPA PO SCH (20:45)
--- NOTE | 2016-08-11 03:43 | NUR ---
Activity Pt. has woken a couple of times tonight to use the toilet. Pt. uses call light appropriately. Pt. is now currently sleeping. Will continue to monitor.
[2016-08-11 05:31] VITALS: BP 141/72; PULSE 77; RESP 17; O2SAT 95
[2016-08-11 05:36] LABS: BASOPHILS % (AUTO) 0.5 % (0-3); EOSINOPHILS % (AUTO) 4.6 % (0-5); MONOCYTES % (AUTO) 11.2 % (4-12); Mean Corpuscular Hemoglobin 30.2 pg (27.0-35.0); Mean Corpuscular Volume 92.4 fL (81-100); NEUTROPHILS % (AUTO) 55.3 % (40-74); Platelet Count 268 bil/L (150-400)
[2016-08-11] MEDS: LORazepam 0.5 mg Tablet PO PRN (06:32)
[2016-08-11] MEDS: cloNIDine 0.1 mg Tablet PO SCH ×2 (09:40→21:38)
--- NOTE | 2016-08-11 14:38 | PCM.PNMED ---
Subjective Date of Service Aug 11, 2016 Subjective Patient seen this morning up in chair, with stable persistent tremor at rest. Conversive and alert, no shortness of breath or chest pain per patient. Exam Vital Signs Vital Sign - Last Date Time Temp Pulse Resp B/P Pulse Ox O2 Delivery O2 Flow Rate FiO2 08/11/16 05:31 36.2 77 17 141/72 95 Room Air Intake and Output 08/10/16 08/10/16 08/11/16 Cumulative From/Thru 15:00 23:00 07:00 07/31/16 15:12 - 08/11/16 05:31 Intake Total 1036 ml 100 ml 39225 ml Output Total 500 ml 550 ml 9442 ml Balance 536 ml -450 ml 3378 ml Intake Oral 1036 ml 100 ml 72196 ml IV Total 0 ml 1776 ml Output Urine Total 500 ml 550 ml 9412 ml Emesis 30 ml # Voids 1 22 # Bowel Movements 0 8 Exam General: Patient is in no apparent distress. Patient feels much better after 1 dose of Ativan 0.5 mg by mouth HEENT: Head is atraumatic normocephalic. Eyes: Pupils are equally round and reactive to light and accommodation. Extraocular muscles are intact. Sclera are white anicteric. Subconjunctival mucosa is pink. Ears and nose are unremarkable. Oropharynx: There is no mucosal lesions, there is no thrush, there is no pharyngitis. Neck: Is supple, there are no nodes, or masses, or tenderness. Chest: Is clear to auscultation and percussion. There are no rales, rhonchi, wheezes or rubs. Heart: Rate, rhythm is regular. There is no new murmur, rub or gallop. Abdomen: Good bowel sounds are present. Abdomen is soft, nontender, no organomegaly or masses were appreciated. Extremities: Are symmetrical and well perfused. There is no edema, there is no cellulitis, no rash. Neurologic: There are no focal neurological deficits. Cranial nerves II through XII are intact. There are no sensory or motor deficits. Patient exhibits some rigidity of her extremities. Psychiatric: Patients mood is calm IVs and Medications Medications Reviewed: Medications were reviewed in detail Lab and Diagnostics Result Diagram: 08/11/16 0508/11/1619 Microbiology Name: SUNIL OSUNA Age/Sex: 86/F Attend Dr: Melquiades Caceres DO Acct: [id number] Unit: [id number] Status: REG ER Location: SED Re07/31/16 Disch: Specimen: [id number] Collected: 07/31/16 Status: COMP Req#: [id number] Received: 07/31/16 Source: EUGENIO Sp Desc : Subm Dr: Melquiades Caceres DO Ordered: RAPID FLU IRS Comments: Collected by Nurse/Unit? Y/N Y Procedure Result Verified Site Microbiology [facility] INFLUENZA RAPID AG SCREEN Final 01/10/17-1809 RESULT NEGATIVE FOR INFLUENZA TYPE A AND B This rapid assay is a screen test only for Influenza A&B and does not definitively rule out the presence of FLU A & B or other respiratory viral pathogens. The assay's sensitivity varies on the specimen type submitted. Nasal washes are optimum. Recommend respiratory viral cultures and DFA to confirm negative screens and rule out other viral pathogens. Per CDC, the sensitivity of this method is approximately 50% for H1N1. A negative result does NOT rule out Novel H1N1 (Swine Flu) X-Rays, CTs and MRIs PROCEDURE: CT BRAIN WITHOUT CONTRAST ([id number]) INDICATIONS: falls TECHNIQUE: Noncontrast 4.5 mm thick angled axial sections acquired from the foramen magnum to the vertex, with coronal reformats. COMPARISON: None. FINDINGS: Image quality: Excellent. CSF spaces: Basal cisterns are patent. No extra-axial fluid collections. The ventricles are symmetric in size and shape. Brain: No intracranial bleeds or masses. There is cerebral volume loss for age , with resultant ventricular and sulcal prominence. There are periventricular and deep white matter chronic small vessel ischemic changes. There is intracranial internal carotid artery atherosclerosis. Skull and face: Calvarium and visualized facial bones appear intact, without suspicious lesions. Sinuses: Visualized sinuses and mastoids show scattered mild mucosal thickening IMPRESSION: No acute intracranial abnormality is seen. Moderate atrophic changes. Scattered mild because of thickening is present in the sinuses. PROCEDURE: X-RAY CHEST ONE VIEW, PORTABLE ([id number]) INDICATIONS: weakness, falls TECHNIQUE: One view of the chest was acquired. COMPARISON: None. FINDINGS: Surgical changes and devices: None. Lungs and pleura: No pleural effusions or pneumothorax. Lungs are clear. Mediastinum: Mediastinal contours appear normal. Heart size is normal. Bones and chest wall: No suspicious bony lesions. Overlying soft tissues appear unremarkable. IMPRESSION: No trauma found, source of weakness and falls is not seen. Assessment & Plan 86 year old Female with h/o Parkinson Disease, DM2, HTN, anxiety, and depression , presented w/ generalized weakness worsening for 2 months with increasing falls , approximately 1 per week, contributed to lorazepam, wheelchair bound for 2 weeks. She recently increased her Sinemet dosage, w/ improved tremors. DR. Perdomo has change medications to increase her carbidopa levodopa and decrease her ropinirole as noted below # Acute on chronic generalized weakness. Has not on admission ongoing - Uncertain of etiology, but likely multifactorial and worsened due to recent medication changes and overdose (pt reportedly had been taking extra doses of her Parkinson meds recently. Also may have been taking lorazepam with analgesics and/or sedatives.) - Besides her Parkinson medications, she had also been on multiple sedative medications including Lorazepam, Requip, Rohypnol, Tylenol PM, CBD drops, and [employer] sleep aids. - - per neurology suspect "encephalopathy may be related to medications and adjustment following reduction of dosed/possible withdrawal". Patient anxiety and tremors were quite rapidly relieved with administration of lorazepam indicating that patient might have signs and symptoms of withdrawal from benzodiazepines -- PT order -- Per Dr. Perdomo the next step would be to stop the Ropinorole if confusion/ sedation persist - presently just decreased ropinirole to 0.25 twice a day # History of Parkinson Disease, improved tremors w/ new regimen sinemet - Fall risk precautions -- Per recommendations of Dr. Perdomo - carbidopa/ levodopa evening dose switched to controlled release/increased the morning dose given at 7 a.m. in the morning to two tablets, continue two tablets at noon, continue 5 p.m. one tablet and 2 tablets in the evening before dinner. Changed ropinirole 0.25 mg p.o. to [address] Perdomo -prn lorazepam for worsening tremor # History of Hypertension with presenting hypertensive urgency. Present on admission. - there were no BP medications noted on patient's medication list - started Catapres and low dose Lisinopril on 08/02/16. This dose appears to be sufficient. We will discharge patient to continue Catapres and lisinopril when appropriate - Dr. Perdomo (neurology) suspect hypertension partially due to carbidopa/ levodopa withdrawal. Patient struck to call for follow-up with Dr. perdomo # Anxiety and Depression - Continue Fluoxetine - Concern patient may have some symptoms of withdrawal from benzodiazepines. However her daughter Jennifer states that the patient had not been on lorazepam for very long # Diabetes Mellitus type 2 - Non Insulin Dependent, diet controlled # Insomnia. Present on admission. ongoing -- Stopped trazodone started Seroquel for sleep since insomnia contributory to admission (consider amitriptyline and nortriptyline if seroquel not helpful), per Dr. Perdomo: "Continue present regimen of carbidopa/levodopa immediate release and carbidopa/levodopa controlled release at bedtime. Continue physical therapy/occupational therapy. At this point she is on such a low dose of ropinirole 0.25 mg p.o. t.i.d. that, if there is a concern that the ropinirole is causing confusion, I do not see a reason why it could not be stopped. However, I do believe that it does play a role not only in control of restless legs but also in her Parkinson disease. If she continues to be confused, we may want to end up stopping the ropinirole by tapering it off; however, at this point I do recommend continuing the ropinirole at 0.25 mg 3 times daily. The Seroquel not only will help her with sleep but will also help with confusion and hallucinations. At this point I do not believe that the ropinirole is directly contributing to confusion. If she does remain confused we could certainly consider tapering this agent off; however, it is a dopamine agonist and may not only help with treatment of her restless legs syndrome but also with her Parkinson disease. Will continue to follow." -Speech and language pathology recommends ongoing therapy - Recommend puree textures, nectar thick liquids, ice chips in moderations, and medications crushed. Also recommend dietary consult to support adequate nutrition. Pain Evaluation: Adequate Pain Control GI Prophylaxis: Not indicated VTE Prophylaxis: Sub-Q Enoxaparin VTE Mechanical Devices: Intermittant Pneumatic CD Resuscitation Status: DNR/DNI:Do Not Resuscitate/Intubate Time spent 30 minutes spent with evaluation and management Julio Shelley DO Aug 11, 2016 14:38
[2016-08-11 15:39] VITALS: BP 96/63; PULSE 77; RESP 16; O2SAT 96
[2016-08-11] MEDS: Alum-Mag Hydrox-Simeth 30 mL Suspension PO PRN (17:39)
[2016-08-11 19:30] VITALS: BP 122/74; PULSE 64; RESP 20; O2SAT 97
[2016-08-11] MEDS: CARBIDOPA LEVODOPA PO SCH (21:41)
--- NOTE | 2016-08-12 03:57 | NUR ---
Activity Pt. does well with SBA going to commode. Pt. states that the tremors are not to bad tonight. Pt. is currently sleeping. Will continue to monitor.
[2016-08-12 05:01] VITALS: BP 129/69; PULSE 68; RESP 18; O2SAT 98
[2016-08-12 05:33] LABS: BASOPHILS % (AUTO) 0.2 % (0-3); EOSINOPHILS % (AUTO) 2.7 % (0-5); Mean Corpuscular Hemoglobin 30.1 pg (27.0-35.0); Mean Corpuscular Volume 92.6 fL (81-100); NEUTROPHILS % (AUTO) 68.5 % (40-74); Platelet Count 262 bil/L (150-400)
[2016-08-12] MEDS: cloNIDine 0.1 mg Tablet PO SCH ×2 (08:51→19:59)
--- NOTE | 2016-08-12 13:12 | PCM.PNMED ---
Subjective Date of Service Aug 12, 2016 Subjective Seen up in chair, eating soup with a spoon with very minor tremor this morning. No chest pain or shortness of breath, patient awaiting bed availability, tomorrow Exam Vital Signs Vital Sign - Last Date Time Temp Pulse Resp B/P Pulse Ox O2 Delivery O2 Flow Rate FiO2 08/12/16 05:01 37.0 68 18 129/69 98 Room Air Intake and Output 08/11/16 08/11/16 08/12/16 Cumulative From/Thru 15:00 23:00 07:00 07/31/16 15:12 - 08/12/16 05:01 Intake Total 760 ml 300 ml 72643 ml Output Total 200 ml 500 ml 48409 ml Balance 560 ml -200 ml 3738 ml Intake Oral 760 ml 300 ml 66592 ml IV Total 1776 ml Output Urine Total 200 ml 500 ml 07689 ml Emesis 30 ml # Voids 2 2 26 # Bowel Movements 2 0 10 Exam General: Patient is in no apparent distress. Patient feels much better after 1 dose of Ativan 0.5 mg by mouth HEENT: Head is atraumatic normocephalic. Eyes: Pupils are equally round and reactive to light and accommodation. Extraocular muscles are intact. Sclera are white anicteric. Subconjunctival mucosa is pink. Ears and nose are unremarkable. Oropharynx: There is no mucosal lesions, there is no thrush, there is no pharyngitis. Neck: Is supple, there are no nodes, or masses, or tenderness. Chest: Is clear to auscultation and percussion. There are no rales, rhonchi, wheezes or rubs. Heart: Rate, rhythm is regular. There is no new murmur, rub or gallop. Abdomen: Good bowel sounds are present. Abdomen is soft, nontender, no organomegaly or masses were appreciated. Extremities: Are symmetrical and well perfused. There is no edema, there is no cellulitis, no rash. Neurologic: There are no focal neurological deficits. Cranial nerves II through XII are intact. There are no sensory or motor deficits. Patient exhibits some rigidity of her extremities. Psychiatric: Patients mood is calm IVs and Medications Medications Reviewed: Medications were reviewed in detail Lab and Diagnostics Result Diagram: 08/12/16 0519 08/12/16518 Microbiology Name: SUNIL OSUNA Age/Sex: 86/F Attend Dr: Melquiades Caceres DO Acct: [id number] Unit: [id number] Status: REG ER Location: SED Re07/31/16 Disch: Specimen: [id number] Collected: 07/31/16 Status: COMP Req#: [id number] Received: 07/31/16 Source: EUGENIO Crawford Desc : Subm Dr: Melquiades Caceres DO Ordered: RAPID FLU IRS Comments: Collected by Nurse/Unit? Y/N Y Procedure Result Verified Site Microbiology [facility] INFLUENZA RAPID AG SCREEN Final 07/31/16-1809 RESULT NEGATIVE FOR INFLUENZA TYPE A AND B This rapid assay is a screen test only for Influenza A&B and does not definitively rule out the presence of FLU A & B or other respiratory viral pathogens. The assay's sensitivity varies on the specimen type submitted. Nasal washes are optimum. Recommend respiratory viral cultures and DFA to confirm negative screens and rule out other viral pathogens. Per CDC, the sensitivity of this method is approximately 50% for H1N1. A negative result does NOT rule out Novel H1N1 (Swine Flu) X-Rays, CTs and MRIs PROCEDURE: CT BRAIN WITHOUT CONTRAST ([id number]) INDICATIONS: falls TECHNIQUE: Noncontrast 4.5 mm thick angled axial sections acquired from the foramen magnum to the vertex, with coronal reformats. COMPARISON: None. FINDINGS: Image quality: Excellent. CSF spaces: Basal cisterns are patent. No extra-axial fluid collections. The ventricles are symmetric in size and shape. Brain: No intracranial bleeds or masses. There is cerebral volume loss for age , with resultant ventricular and sulcal prominence. There are periventricular and deep white matter chronic small vessel ischemic changes. There is intracranial internal carotid artery atherosclerosis. Skull and face: Calvarium and visualized facial bones appear intact, without suspicious lesions. Sinuses: Visualized sinuses and mastoids show scattered mild mucosal thickening IMPRESSION: No acute intracranial abnormality is seen. Moderate atrophic changes. Scattered mild because of thickening is present in the sinuses. PROCEDURE: X-RAY CHEST ONE VIEW, PORTABLE ([id number]) INDICATIONS: weakness, falls TECHNIQUE: One view of the chest was acquired. COMPARISON: None. FINDINGS: Surgical changes and devices: None. Lungs and pleura: No pleural effusions or pneumothorax. Lungs are clear. Mediastinum: Mediastinal contours appear normal. Heart size is normal. Bones and chest wall: No suspicious bony lesions. Overlying soft tissues appear unremarkable. IMPRESSION: No trauma found, source of weakness and falls is not seen. Assessment & Plan 86 year old Female with h/o Parkinson Disease, DM2, HTN, anxiety, and depression , presented w/ generalized weakness worsening for 2 months with increasing falls , approximately 1 per week, contributed to lorazepam, wheelchair bound for 2 weeks. She recently increased her Sinemet dosage, w/ improved tremors. DR. George has change medications to increase her carbidopa levodopa and increased her ropinirole as noted below # Acute on chronic generalized weakness. Has not on admission ongoing - Uncertain of etiology, but likely multifactorial and worsened due to recent medication changes and overdose (pt reportedly had been taking extra doses of her Parkinson meds recently. Also may have been taking lorazepam with analgesics and/or sedatives.) - Besides her Parkinson medications, she had also been on multiple sedative medications including Lorazepam, Requip, Rohypnol, Tylenol PM, CBD drops, and [employer] sleep aids. -- per neurology suspect "encephalopathy may be related to medications and adjustment following reduction of dosed/possible withdrawal". -- Patient anxiety and tremors were quite rapidly relieved with administration of lorazepam indicating that patient might have signs and symptoms of withdrawal from benzodiazepines -- PT order -- Per Dr. George the next step would be to stop the Ropinorole if confusion/ sedation persist - presently just decreased ropinirole to 0.25 twice a day # History of Parkinson Disease, improved tremors w/ new regimen sinemet - Fall risk precautions -- Per recommendations of Dr. George - carbidopa/ levodopa evening dose switched to controlled release/increased the morning dose given at 7 a.m. in the morning to two tablets, continue two tablets at noon, continue 5 p.m. one tablet and 2 tablets in the evening before dinner. Changed ropinirole 0.25 mg p.o. to [address] George -prn lorazepam for worsening tremor # History of Hypertension with presenting hypertensive urgency. Present on admission. - there were no BP medications noted on patient's medication list - started Catapres and low dose Lisinopril on 08/02/16. This dose appears to be sufficient. We will discharge patient to continue Catapres and lisinopril when appropriate - Dr. George (neurology) suspect hypertension partially due to carbidopa/ levodopa withdrawal. # Anxiety and Depression - Continue Fluoxetine - Concern patient may have some symptoms of withdrawal from benzodiazepines. However her daughter Jennifer states that the patient had not been on lorazepam for very long # Diabetes Mellitus type 2 - Non Insulin Dependent, diet controlled # Insomnia. Present on admission. ongoing -- Stopped trazodone started Seroquel for sleep since insomnia contributory to admission (consider amitriptyline and nortriptyline if seroquel not helpful), per Dr. George: "Continue present regimen of carbidopa/levodopa immediate release and carbidopa/levodopa controlled release at bedtime. Continue physical therapy/occupational therapy. At this point she is on such a low dose of ropinirole 0.25 mg p.o. t.i.d. that, if there is a concern that the ropinirole is causing confusion, I do not see a reason why it could not be stopped. However, I do believe that it does play a role not only in control of restless legs but also in her Parkinson disease. If she continues to be confused, we may want to end up stopping the ropinirole by tapering it off; however, at this point I do recommend continuing the ropinirole at 0.25 mg 3 times daily. The Seroquel not only will help her with sleep but will also help with confusion and hallucinations. At this point I do not believe that the ropinirole is directly contributing to confusion. If she does remain confused we could certainly consider tapering this agent off; however, it is a dopamine agonist and may not only help with treatment of her restless legs syndrome but also with her Parkinson disease. Will continue to follow." -Speech and language pathology recommends ongoing therapy - Recommend puree textures, nectar thick liquids, ice chips in moderations, and medications crushed. Also recommend dietary consult to support adequate nutrition. Pain Evaluation: Adequate Pain Control GI Prophylaxis: Not indicated VTE Prophylaxis: Sub-Q Enoxaparin VTE Mechanical Devices: Intermittant Pneumatic CD Resuscitation Status: DNR/DNI:Do Not Resuscitate/Intubate Time spent 30 minutes spent with evaluation and management Attending Statement Continue to wait for bed availability, available on August 13 Julio Shelley DO Aug 12, 2016 13:12
[2016-08-12] MEDS: LORazepam 0.5 mg Tablet PO PRN (13:34)
[2016-08-12 14:35] VITALS: BP 101/59; PULSE 70; RESP 20; O2SAT 96
[2016-08-12] MEDS: Alum-Mag Hydrox-Simeth 30 mL Suspension PO PRN (14:44)
[2016-08-12 17:14] VITALS: BP 152/70; PULSE 64; RESP 18; O2SAT 96
--- NOTE | 2016-08-12 19:21 | NUR ---
Tremors Pt tremors well controlled this am, tremors worse this afternoon after swallowing meds whole and not crushing them, 0.5mg Ativan given PO, tremors well controlled after that.
[2016-08-12 19:52] VITALS: BP 100/58; PULSE 71; RESP 20; O2SAT 98
[2016-08-12] MEDS: CARBIDOPA LEVODOPA PO SCH (21:39)
[2016-08-13] MEDS: LORazepam 0.5 mg Tablet PO PRN (05:23)
[2016-08-13 05:31] VITALS: BP 109/61; PULSE 72; RESP 20; O2SAT 97
--- NOTE | 2016-08-13 05:47 | NUR ---
Tremors Increased tremors in evening responded well to HS dose of Requip; maintenance Sinemet for intermediate card tender relief did not last through night. Ativan given at 0530 for increased shakiness with good effect. Branscomb alarm on for safety, pt has been appropriate with call light all shift. Hourly rounding ongoing.
[2016-08-13] MEDS: cloNIDine 0.1 mg Tablet PO SCH (09:49)
--- NOTE | 2016-08-13 12:53 | NUR ---
Faxed orders and script to [facility]. Patient family to transport.
--- NOTE | 2016-08-13 15:17 | NUR ---
Social Work: Continued DC Planning Public Relations Writer spoke with the patient's daughter at [phone] and notified her that the PT was recommending SNF for the patient. Patient's daughter voiced understanding. SW will leave a list of SNF choices at bedside for the patient and family to review. SW will continue to follow. Blanca Thompson LMSW, JANICE
--- NOTE | 2016-08-13 15:46 | NUR ---
Discharge Patient discharged to [facility] facility for further care. Pt transported via cabulance by facility . Daughter is present and will follow patient there. Patients belongings gathered by daughter and taken. Report called to receiving facility.
--- NOTE | 2016-08-13 17:41 | PCM.DC.MED ---
Discharge Summary Date of Service Aug 13, 2016 Dates of Hospitalization Date of Hospital Admission Jul 31, 2016 at 19:27 Date of Discharge: Aug 13, 2016 Providers: Admitting Physician: Yamila Castillo MD Primary Care Physician: Ashok Aden MD Attending Physician: Yamila Castillo MD Diagnosis at Time of Discharge Diagnosis at Time of Discharge Parkinson's disease Tremor, acutely worsening Diabetes Hypertension Anxiety Depression Insomnia Consultations Dr. perdomo of neurology Procedures XRay, CTs & MRIs PROCEDURE: CT BRAIN WITHOUT CONTRAST ([id number]) INDICATIONS: falls TECHNIQUE: Noncontrast 4.5 mm thick angled axial sections acquired from the foramen magnum to the vertex, with coronal reformats. COMPARISON: None. FINDINGS: Image quality: Excellent. CSF spaces: Basal cisterns are patent. No extra-axial fluid collections. The ventricles are symmetric in size and shape. Brain: No intracranial bleeds or masses. There is cerebral volume loss for age , with resultant ventricular and sulcal prominence. There are periventricular and deep white matter chronic small vessel ischemic changes. There is intracranial internal carotid artery atherosclerosis. Skull and face: Calvarium and visualized facial bones appear intact, without suspicious lesions. Sinuses: Visualized sinuses and mastoids show scattered mild mucosal thickening IMPRESSION: No acute intracranial abnormality is seen. Moderate atrophic changes. Scattered mild because of thickening is present in the sinuses. PROCEDURE: X-RAY CHEST ONE VIEW, PORTABLE ([id number]) INDICATIONS: weakness, falls TECHNIQUE: One view of the chest was acquired. COMPARISON: None. FINDINGS: Surgical changes and devices: None. Lungs and pleura: No pleural effusions or pneumothorax. Lungs are clear. Mediastinum: Mediastinal contours appear normal. Heart size is normal. Bones and chest wall: No suspicious bony lesions. Overlying soft tissues appear unremarkable. IMPRESSION: No trauma found, source of weakness and falls is not seen. Brief History As noted in H&P by Dr. 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 for neurologic assessment of generalized weakness that has been worsening over the last 2 months. Per report, patient has also fallen on several occasions in the past week and has been complaining of general myalgia, fatigue, and general discomfort. Her neurologist believes her symptoms may be due to overdosage of her medications, and along with addition of Lorazepam to her regimen, this may be causing her recent falls. She is unable to localize her discomforts, but denies any recent fevers, chills, N/V/D, abdominal pain, SOB, or anginal symptoms. Her Sinemet dosage was double a week ago, which has helped with her tremors, but her weakness remains. Her fluid and PO intake has also been fairly decreased. In the ED, patient was found to be hypertensive at 224/84. Her CBC and CMP was reassuring except for Sodium of 130. Her UA was unremarkable. CXR and CT brain did not show any acute disease process. Rapid Flu screen was negative. EKG was sinus rhythm with rate in the 80s. She did receive a Liter of NS and 30mg of IV Labetalol for blood pressure control. Hospital Course Please note that his is an addendum to the discharge summary that was dictated earlier by Dr. Shelley on 08/09/16. Patient's discharge was delayed due to placement issues and further medication adjustment. # Acute on chronic generalized weakness. Has not on admission ongoing - Uncertain of etiology, but likely multifactorial and worsened due to recent medication changes and overdose (pt reportedly had been taking extra doses of her Parkinson meds recently. Also may have been taking lorazepam with analgesics and/or sedatives.) - Besides her Parkinson medications, she had also been on multiple sedative medications including Lorazepam, Requip, Rohypnol, Tylenol PM, CBD drops, and [facility] sleep aids. -- per neurology suspect "encephalopathy may be related to medications and adjustment following reduction of dosed/possible withdrawal". -- Patient anxiety and tremors were quite rapidly relieved with administration of lorazepam indicating that patient might have signs and symptoms of withdrawal from benzodiazepines -- PT order -- Per Dr. Perdomo the next step would be to stop the Ropinorole if confusion/ sedation persist - presently just decreased ropinirole to 0.25 twice a day # History of Parkinson Disease, improved tremors w/ new regimen sinemet - Fall risk precautions -- Per recommendations of Dr. Perdomo - carbidopa/ levodopa evening dose switched to controlled release/increased the morning dose given at 7 a.m. in the morning to two tablets, continue two tablets at noon, continue 5 p.m. one tablet and 2 tablets in the evening before dinner. Changed ropinirole 0.25 mg p.o. to [address] Perdomo -prn lorazepam for worsening tremor # History of Hypertension with presenting hypertensive urgency. Present on admission. - there were no BP medications noted on patient's medication list - started Catapres and low dose Lisinopril on 08/02/16. This dose appears to be sufficient. We will discharge patient to continue Catapres and lisinopril when appropriate - Dr. Perdomo (neurology) suspect hypertension partially due to carbidopa/ levodopa withdrawal. # Anxiety and Depression - Continue Fluoxetine - Concern patient may have some symptoms of withdrawal from benzodiazepines. However her daughter Jennifer states that the patient had not been on lorazepam for very long # Diabetes Mellitus type 2 - Non Insulin Dependent, diet controlled # Insomnia. Present on admission. ongoing -- Stopped trazodone started Seroquel for sleep since insomnia contributory to admission (consider amitriptyline and nortriptyline if seroquel not helpful), per Dr. Perdomo: by day of d/c patient noted to be awake, alert and Ox3. mild resting tremor of hands noted bilat. Lungs CTA bilat. speaking in full sentences Exam Vital Signs (Last) Date Time Temp Pulse Resp B/P Pulse Ox O2 Delivery O2 Flow Rate FiO2 08/13/16 05:31 37.0 72 20 109/61 97 Room Air Test 07/31/16 15:10 07/31/16 15:58 08/07/16 04:46 08/08/16 04:53 Hold Urine Received (Received) Lactic Acid Level 1.0mmol/L (0.4-2.0) Troponin T < 0.010ug/L (0.0-0.011) Pro-B-Type Natriuretic Peptide 801.9pg/mL (0-738) Thyroid Stimulating Hormone (TSH) 0.741uIU/mL (0.450-4.500) Free Thyroxine 1.42ng/dL (0.82-1.77) Magnesium Level 2.4mg/dL (1.6-2.6) Erythrocyte Sedimentation Rate 9mm/hr (0-40) C-Reactive Protein 0.1mg/dL (0.0-0.5) Procalcitonin < 0.05ng/mL (See Comment) Test 08/08/16 14:25 08/12/16 05:19 Urine Color Straw (YELLOW) Urine Appearance Clear (CLEAR,HAZY) Urine pH 7.0 (5.0-8.0) Urine Specific Schurz 1.010 (1.003-1.035) Urine Protein Negativemg/dL (NEG,TRACE) Urine Glucose (UA) Negativemg/dL (NEGATIVE) Urine Ketones Negativemg/dL (NEGATIVE) Urine Occult Blood Negative (NEGATIVE) Urine Nitrite Negative (NEGATIVE) Urine Bilirubin Negative (NEGATIVE) Urine Urobilinogen Normalmg/dL (NORMAL) Urine Leukocyte Esterase Negative (NEGATIVE) Urine RBC 0-2/hpf (0-2) Urine WBC 0-5/hpf (0-5) Urine Epithelial Cells Occasional/hpf (NONE-MOD) Urine Crystals None seen (NONE SEEN) Urine Bacteria None/hpf (NONE-FEW) Urine Hyaline Casts None/lpf (NONE) Urine Granular Casts None seen (NONE SEEN) Urine Waxy Casts None seen (NONE SEEN) Urine Red Blood Cell Casts None seen (NONE SEEN) Urine White Blood Cell Casts None seen (NONE SEEN) Urine Mucus None seen (None Seen) Urine Trichomonas None seen (NONE SEEN) Urine Yeast None (NONE SEEN) Urinalysis Comment None Urine Culture Reflexed Not indicated White Blood Count 8.5th/mm3 (3.8-10.1) Red Blood Count 3.79mil/mm3 (3.90-5.20) Hemoglobin 11.4g/dL (12.0-15.6) Hematocrit 35.1% (35.0-46.0) Mean Corpuscular Volume 92.6fL (81-100) Mean Corpuscular Hemoglobin 30.1pg (27.0-35.0) Mean Corpuscular Hemoglobin Concent 32.5% (32.0-37.0) Red Cell Distribution Width 13.7% (12.3-15.4) Platelet Count 262bil/L (150-400) Neutrophils (%) (Auto) 68.5% (40-74) Lymphocytes (%) (Auto) 19.2% (14-46) Monocytes (%) (Auto) 9.0% (4-12) Eosinophils (%) (Auto) 2.7% (0-5) Basophils (%) (Auto) 0.2% (0-3) Sodium Level 137mEq/L (134-144) Potassium Level 5.0mEq/L (3.5-5.2) Chloride Level 101mEq/L (97-108) Carbon Dioxide Level 23mmol/L (18-29) Blood Urea Nitrogen 40mg/dL (8-27) Creatinine 1.38mg/dL (0.57-1.00) Estimat Glomerular Filtration Rate 52mL/min (>59) Glucose Level 96mg/dL (60-99) Calcium Level 8.8mg/dL (8.5-10.1) Total Bilirubin 0.2mg/dL (0.0-1.2) Aspartate Amino Transf (AST/SGOT) 14U/L (0-50) Alanine Aminotransferase (ALT/SGPT) 5U/L (0-32) Alkaline Phosphatase 85U/L (25-165) Total Protein 5.3g/dL (6.4-8.4) Albumin 3.4g/dL (3.4-5.0) Microbiology Results Name: ENRRIQUESUNIL Age/Sex: 86/F Attend Dr: Melquiades Caceres DO Acct: [id number] Unit: [id number] Status: REG ER Location: SED Re07/31/16 Disch: Specimen: [id number] Collected: 07/31/16 Status: FABIO Davies#: [id number] Received: 07/31/16 Source: EUGENIO Crawford Desc : Subm Dr: Melquiades Caceres DO Ordered: RAPID FLU IRS Comments: Collected by Nurse/Unit? Y/N Y Procedure Result Verified Site Microbiology [facility] INFLUENZA RAPID AG SCREEN Final 07/31/16 RESULT NEGATIVE FOR INFLUENZA TYPE A AND B This rapid assay is a screen test only for Influenza A&B and does not definitively rule out the presence of FLU A & B or other respiratory viral pathogens. The assay's sensitivity varies on the specimen type submitted. Nasal washes are optimum. Recommend respiratory viral cultures and DFA to confirm negative screens and rule out other viral pathogens. Per CDC, the sensitivity of this method is approximately 50% for H1N1. A negative result does NOT rule out Novel H1N1 (Swine Flu) Discharge Medications Discharge Medications Carbidopa/Levodopa 25-100 mg (Carbidopa/Levodopa 25-100 mg) 1 Each Tablet 1 TABLET PO TID Prescribed by: CHRIS SHELLEY DO Carbidopa/Levodopa 25-100 mg (Carbidopa/Levodopa 25-100 mg) 1 Each Tablet 2 TABLET PO Prescribed by: CHRIS SHELLEY DO Carbidopa/Levodopa ER 25-100 mg (Carbidopa/Levodopa ER 25-100 mg) 1 Each Tablet 1 TABLET PO HS Prescribed by: CHRIS SHELLEY DO Carbidopa/Levodopa ER 25-100 mg (Carbidopa/Levodopa ER 25-100 mg) 1 Each Tablet 2 TABLET PO HS Prescribed by: CHRIS SHELLEY DO Celecoxib (Celecoxib) 200 Mg Capsule 200 MG PO BID (Reported) Cholecalciferol (Vitamin D3) (Vitamin D) 1,000 Unit Capsule 1,000 UNIT PO DAILY (Reported) Clonidine (Catapres) 0.1 Mg Tablet 0.1 MG PO BID Prescribed by: CHRIS SHELLEY DO Fluoxetine (Fluoxetine) 40 Mg Capsule 40 MG PO HS (Reported) Lisinopril (Lisinopril) 5 Mg Tablet 5 MG PO DAILY Prescribed by: CHRIS SHELLEY DO Quetiapine Fumarate (Quetiapine Fumarate) 25 Mg Tablet 25 MG PO HS Prescribed by: CHRIS SHELLEY DO Ropinirole (Requip) 0.25 Mg Tablet 0.25 MG PO BID Prescribed by: CHRIS SHELLEY DO As needed Acetaminophen (Acetaminophen) 325 Mg Tablet 325 MG PO Q4H PRN PRN For Pain ( Reported) Lorazepam (Lorazepam) 0.5 Mg Tablet 0.5 MG PO HS PRN PRN For Insomnia Prescribed by: CHRIS SHELLEY DO Additional med instructions Patient had her carbidopa levodopa increased as listed in hospital course. Also had ropinirole dose decreased as listed Followup Plan Follow-up plan He will follow with the longterm facility physician on staff and please follow-up with your primary care physician Dr. Ashok Aden within 1 week of discharge from the longterm facility. Discharge Diet: No restrictions, Other (-Speech and language pathologyRecommend puree textures, nectar thick ) Discharge Activity: Other (Assessment ) Patient Instructions You are being discharged to a skilled facility to optimize rehabilitation. Your dose of carbidopa levodopa has been increased and your dose of ropinirole has been decreased. Follow-up with PCP in: 1 week (after longterm facility discharge) Provider: Angel Perdomo MD Follow-up in: 2 weeks (after's longterm facility discharge) Mid-level Provider: Ashok Aden MD Follow-up with Mid-level in: 1 week (after longterm facility discharge) Time spent 30 min copies to: Angel Perdomo MD; Ashok Aden MD, Masoud Aug 13, 2016 17:41
== END 2016-08-13 15:20 | DRG 56 ==
LOC: SED 14:58 → EDUNIT# 14:58 → EDBD 14:58 → MOC 19:27 → OBSVTOIN 19:27 → OSC 08-01 01:19
PROVIDERS: ADMIT Urology; ATTEND Urology
DX: G20 Parkinson's disease (principal); G93.40 Encephalopathy, unspecified; F32.9 Major depressive disorder, single episode, unspecified; G47.00 Insomnia, unspecified; G25.81 Restless legs syndrome; Z91.81 History of falling; Z87.891 Personal history of nicotine dependence; F41.9 Anxiety disorder, unspecified; Z66 Do not resuscitate; R53.1 Weakness; I16.0 Hypertensive urgency